=== PATIENT | female | born 1965 | race Caucasian/White ===

== ENCOUNTER 2022-09-25 17:42 | Emergency (ER) | payer MEDICAID, SELFPAY ==
[2022-09-25 17:59] VITALS: BP 117/75; PULSE 82; RESP 18; O2SAT 98; BMI 23.2
--- NOTE | 2022-09-25 18:36 | ED_ITS ---
HPI - General Adult General Chief complaint: Animal Bite Stated complaint: Dog Bite Time Seen by Provider: 09/25/22 17:46 History of Present Illness HPI narrative: Patient is a 49 year white female who is think she is near the end of her tetanus immunization. , was in her eye edge and a piece of food fell on the floor, her dog and another dog scrapped for it and accidentally cut her right anterior flores leg. Patient had good hemostasis is generally healthy, as mentioned uncertain of last tetanus, no meds at home. Related Data Previous Rx's Medication Instructions Recorded cephalexin 500 mg capsule 500 mg PO QID #20 caps 09/25/22 Allergies Allergy/AdvReac Type Severity Reaction Status Date / Time No Known Drug Allergies Allergy Verified 09/25/22 17:59 Review of Systems Status of ROS: Reports: 6 or more systems reviewed and unremarkable except as noted in History and below [facility] Social History Smoking Status: Never smoker Do you use any of these nicotine containing products: None Second hand tobacco smoke exposure: No How often do you have a drink containing alcohol: never AUDIT-C Alcohol total score: 0 Non-prescribed substance use: denies use service: No Exam Narrative: Exam Narrative: Objective: Patient's vital signs unremarkable Right lower extremity shows a 4 cm by 2 cm gaping wound with soft tissue skin loss. There is some fat loss underneath the skin as well. There does not appear to be any deep punctures or other abnormalities Procedure after sterile irrigation and spraying and soaking with sterile solution 1% xylocaine with epinephrine was used for anesthesia patient tolerated this well was able to reapproximate the edges with some skin tension, was also able to reapproximate her tattoo in that area with the sutures and appeared satisfactory to the patient. She will be given an updated Tdap as were unable to locate her prior tetanus shot, will get a Keflex 500 orally common will start Keflex 500 q.i.d. x5 days. She will need suture removal in 7 days at primary care clinic, watch for redness infection and return to ED sooner if there is problems or concerns or infection symptoms. Const: Vital Signs, click to edit/add: Vital Signs - 24 hr 09/25/22 17:59 Pulse Rate [Pulse Oximeter] 82 Respiratory Rate 18 Blood Pressure [Ri ght Upper Arm] 117/75 Pulse Oximetry 98 Oxygen Delivery Me thod Room Air Course Vital Signs Vital signs: Initial Vital Signs Temperature Source Temporal Artery Scan 09/25/22 17:59 Pulse Rate 82 09/25/22 17:59 Pulse Rhythm Regular 09/25/22 17:59 Respiratory Rate 18 09/25/22 17:59 Blood Pressure 117/75 09/25/22 17:59 Blood Pressure Mean 89 09/25/22 17:59 Blood Pressure Position Sitting 09/25/22 17:59 Pulse Oximetry 98 09/25/22 17:59 Oxygen Delivery Method Room Air 09/25/22 17:59 Vital Signs Pulse Rate 82 09/25/22 17:59 Respiratory Rate 18 09/25/22 17:59 Blood Pressure 117/75 09/25/22 17:59 Pulse Oximetry 98 09/25/22 17:59 Oxygen Delivery Method Room Air 09/25/22 17:59 Pulse Rate 82 09/25/22 17:59 Respiratory Rate 18 09/25/22 17:59 Blood Pressure 117/75 09/25/22 17:59 Pulse Oximetry 98 09/25/22 17:59 Oxygen Delivery Method Room Air 09/25/22 17:59 Discharge Plan Discharge Clinical Impression: Bite by animal, Laceration Patient Disposition: Home, Self-Care Condition: Improved Additional Instructions: Suture removal in 7 days, antibiotic for 5 days, keep dry for 24 hours then may soak in soapy water and cover with a bandage as needed. Return if redness concerns or questions. Activity Level: Light activity Discharge Diet: Regular Prescriptions: New cephalexin 500 mg capsule 500 mg PO QID Qty: 20 0RF Stand Alone Forms: [employer] Info Instructions
--- NOTE | 2022-09-25 18:47 | ED.NURSE ---
did call [facility]'s department and aware of the dog bite . emmy story is on her way. this occurred at her resident . owners' name is josue shane.
[2022-09-25] MEDS: TETANUS/DIPHTH/PERTUSSIS 0.5 ML SYRINGE IM (18:50)
[2022-09-25] MEDS: cephALEXin 500 MG CAPSULE PO (18:52)
== END 2022-09-25 19:02 | disposition home or self-care (01) ==
PROVIDERS: Emergency Provider Family Medicine
DX: S81.811A Laceration without foreign body, right lower leg, initial encounter (principal); W54.0XXA Bitten by dog, initial encounter
CPT/HCPCS: 12002; 90471; 90715; 99283; 99284; A9270

== ENCOUNTER 2023-09-27 15:42 | Emergency (ER) | payer BC, SELFPAY ==
[2023-09-27 15:44] VITALS: BP 106/67; PULSE 66; RESP 18; TEMP 37.3; O2SAT 97; BMI 23.5
--- NOTE | 2023-09-27 16:22 | ED_ITS ---
HPI - Chest Pain General Chief Complaint: Chest Pain Stated Complaint: intermittent chest pains Time Seen by Provider: 09/27/23 15:56 History of Present Illness HPI narrative: This 58-year-old female comes in reporting intermittent chest discomfort that began upon awakening this morning. She states that it comes and goes in that there is no trigger that makes it feel better or worse. She does not have any nausea, vomiting, lightheadedness, shortness of breath, or diaphoresis. Her discomfort is not reproduced with activity and she does not have any report of exercise intolerance. She does not have any cardiac risk factors but states that her father did have some kind of heart condition but he was morbidly obese and did not attend to his health. The patient thinks that this pain is likely musculoskeletal as she was working in the garden yesterday. She states that she did not have any symptoms yesterday with those activities. Related Data Allergies Allergy/AdvReac Type Severity Reaction Status Date / Time No Known Drug Allergies Allergy Verified 09/27/23 15:48 Review of Systems Status of ROS Reports: 10 or more systems reviewed and unremarkable except as noted in History and below Narrative Constitutional: No fevers, no weight gain or loss. Eyes: No discharge. No vision changes. HENT: No congestion, no sore throat, no ear pain. Cardiovascular: No palpitations. Respiratory: No shortness of breath, no wheezes, no cough. Gastrointestinal: No abdominal pain, no vomiting, no diarrhea. Genitourinary: No dysuria, no hematuria. Musculoskeletal: Normal range of motion. Skin: No rashes, no pruritis. Neurological: No dizziness, weakness, sensory change, speech change. Endo/Heme/Allergies: No bruising or bleeding. No polydipsia. Pysch: no suicidality, no anxiety, no insomnia. All other systems reviewed and are negative. PFSH PFS Social History Smoking Status: Former smoker Do you use any of these nicotine containing products: None Second hand tobacco smoke exposure: No How often do you have a drink containing alcohol: never AUDIT-C Alcohol total score: 0 Non-prescribed substance use: denies use service: No Exam Narrative Exam Narrative: Constitutional: Well-developed, well-nourished, no acute distress. HEENT: Normocephalic, atraumatic. Neck: Normal range of motion. Nontender. Supple. Heart: Regular. No murmurs. Normal rate. Intact distal pulses. Lungs: Clear to auscultation. No chest discomfort. No wheezes, rhonchi, or rales. Abdomen: Normal bowel sounds. Nontender. No rebound tenderness. Genitalia: Deferred. Back: No midline tenderness. Normal range of motion. Extremities: Normal range of motion. No injury. Skin: Intact. No rash. Warm. No erythema or pallor. Neurologic: No altered sensation. No weakness. Alert and oriented. Psychiatric: No suicidality. No anxiety or depression. No insomnia. Nursing notes and vitals signs are reviewed. Const Vital Signs, click to edit/add: Vital Signs - 24 hr 09/27/23 15:44 Temperature 99.1 F Pulse Rate [Right Pulse Oximeter] 66 Respiratory Rate 18 Blood Pressure [Right Upper Arm] 106/67 Pulse Oximetry 97 Oxygen Delivery Method Room Air Course Vital Signs Vital signs: Initial Vital Signs Temperature 99.1 F 09/27/23 15:44 Temperature Source Temporal Artery Scan 09/27/23 15:44 Pulse Rate 66 09/27/23 15:44 Pulse Rhythm Regular 09/27/23 15:44 Respiratory Rate 18 09/27/23 15:44 Blood Pressure 106/67 09/27/23 15:44 Blood Pressure Mean 80 09/27/23 15:44 Pulse Oximetry 97 09/27/23 15:44 Oxygen Delivery Method Room Air 09/27/23 15:44 Vital Signs Temperature 99.1 F 09/27/23 15:44 Pulse Rate 66 09/27/23 15:44 Respiratory Rate 18 09/27/23 15:44 Blood Pressure 106/67 09/27/23 15:44 Pulse Oximetry 97 09/27/23 15:44 Oxygen Delivery Method Room Air 09/27/23 15:44 Temperature 99.1 F 09/27/23 15:44 Pulse Rate 66 09/27/23 15:44 Respiratory Rate 18 09/27/23 15:44 Blood Pressure 106/67 09/27/23 15:44 Pulse Oximetry 97 09/27/23 15:44 Oxygen Delivery Method Room Air 09/27/23 15:44 MDM - Chest Pain MDM Narrative Medical decision making narrative: This patient comes in reporting some intermittent mild upper anterior chest discomfort that comes and goes starting this morning. She was working out in the garden yesterday but does not report any injury event or significant strenuous activity. Nevertheless she does think that this is more likely musculoskeletal in nature. She does not have any major cardiac risk factors and her signs and symptoms are also reassuring. EKG returns with normal sinus rhythm and no sign of ST or T-wave abnormality. Additionally her troponin returns at 0. Other lab results are pending at the time when the patient feels comfortable and wants to go home. I did discuss other options for further evaluation including echocardiogram and stress testing. This patient does have good exercise tolerance and her chest pain is not likely of cardiac or pulmonary etiology. Lab Data Labs: Lab Results 09/27/23 Range/Units 16:22 POC Troponin I 0.00 L (0.01-0.04) ng/ml ECG Data Attestation: I personally reviewed and interpreted this ECG as follows: Interpretation: Normal sinus rhythm. Rate is 58 beats per minute. There are no ST or T-wave abnormalities. Discharge Plan Discharge Clinical Impression: Anterior chest wall pain Patient Disposition: Home, Self-Care Condition: Stable Additional Instructions: Continue current plans. Activity as tolerated. Follow up with MD or if symptoms are persistent or worsening return to emergency department. He may consider outpatient studies if needed including stress testing and echocardiogram. Follow Up/Referrals: Provider,Not a Local [Primary Care Provider] - Stand Alone Forms: [employer] Info Instructions
[2023-09-27 16:51] LABS: Basophils Absolute Auto 0.03 K/uL (0.00-0.30); Basophils Percent Auto 0.5 % (0.0-3.0); Eosinophils Absolute Auto 0.05 K/uL (0.00-0.50); Eosinophils Percent Auto 0.8 % (0.0-7.0); Hematocrit 38.3 % (33.0-51.0); Hemoglobin* 12.6 gm/dL (12.0-16.0); Lymphocytes Absolute Auto 1.75 K/uL (0.90-2.90); Lymphocytes Percent Auto 28.8 % (20-44); Mean Corpuscular HGB Conc 33 gm/dL (32-36); Mean Corpuscular Hemoglobin 29 pg (26-34); Mean Corpuscular Volume 88 fL (80-100); Monocytes Percent Auto 6.8 % (0.0-11.0); Neutrophils Absolute Auto 3.83 K/uL (1.7-7.0); Neutrophils Percent Auto 63.1 % (42.0-72.0); Platelet Count* 252 K/uL (140-440); RDW Coefficient of Variation % 13.1 % (11.5-15.5); Red Blood Count 4.36 m/uL (4.00-5.20); White Blood Count* 6.07 K/uL (4.50-11.00)
[2023-09-27 17:08] LABS: Chloride* 101 mmol/L (96-114)
[2023-09-27 17:09] LABS: Slide Review Reflex No; Sodium* 136 mmol/L (135-149)
[2023-09-27 17:11] LABS: Anion Gap 5 mEq/L (7-15); Carbon Dioxide* 30 mmol/L (20-32); Creatinine* 0.7 mg/dL (0.5-1.5); Est. Creatinine Clearance* 74.72; Estimated Glomerular Filt Rate 100 ml/min
[2023-09-27 17:12] LABS: Blood Urea Nitrogen* 19 mg/dL (7-30); Calcium* 9.1 mg/dL (8.4-10.6); Glucose* 81 mg/dL (60-115)
[2023-09-27 17:22] VITALS: BP 103/74; PULSE 58; RESP 16; O2SAT 96
== END 2023-09-27 17:26 | disposition home or self-care (01) ==
PROVIDERS: Emergency Provider Emergency Medicine Emergency Medical Services
DX: R07.89 Other chest pain (principal)
CPT/HCPCS: 36415; 80048; 84484; 85025; 93005; 99284

== ENCOUNTER 2024-06-25 10:15 | Emergency (ER) | payer BC, SELFPAY ==
--- OUTSIDE RECORDS SUMMARY | 2024-06-25 10:18 | XMS_ITS | Encounter Summary ---
Author Organization [facility] Address [address] [place] [address]. [place] [address] Care Team Providers Care Time Recorder Name Role Phone Breanna Martin CNP Primary Care Provider [phone] Breanna Martin CNP Unavailable [phone] [facility] Primary Care Pro vider Chris Carver DO Unavailable [phone] Chris Carver DO Unavailable [phone] Breanna Martin CNP Primary Care Provider [phone] Reason for Visit * Reason Comments Medication Refill Encounter Details Date Type Department Care Team (Late st Contact Info) Description 09/12/[address] [phone] Breanna Martin CNP [address] [place] [id number] Medication Refill Social History Tobacco Use Types Packs/Day Years Used Date Smoking Tobacco: Passive Smoke Exposure - Never Smoker Cigarettes 0.3 19 - 04/21/1999 Smokeless Tobacco: Never Alcohol Use Standard Drinks/Week Comments Not Currently 0 (1 standard drink = 0.6 oz pur e alcohol) 0-3 drinks Q1M PHQ-2 Answer Date Recorded PHQ-2 Score 2 07/13/2021 Comments No Sex and Gender Information Value Date Recorded Sex Assigned at Not on file Legal Sex Female 3:21 AM VEHICLE MONITOR TECHNICIAN Gender Identity Female 05/29/2018 6:02 PM VEHICLE MONITOR TECHNICIAN Sexual Orientation Not on file 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 Not on file Not on file documented as of this encounter Miscellaneous Notes * Telephone Encounter - Kenna Bonilla RN - 09/12/2021 1:37 PM CDT Refill per RN protocol Kenna Bonilla RN, BSN [place] Triage documented in this encounter Plan of Treatment Upcoming Encounters Date Type Department Care Team (Late st Contact Info) Description 09/21/2024 3:30 PM CDT Office Visit [address] [phone] Papito Hilliard DO [address] [place] [address] [id number] documented as of this encounter Visit Diagnoses Diagnosis Migraine without status migrainosus, not intractable, unspecified migraine type documented in this encounter Additional Health Concerns Assessment Noted Time PHQ-9 Depression Total Score: 6 12/12/19 16 7:16 AM CDT documented as of this encounter Care Teams Time Recorder Relationship Specialty Start Date End Date Breanna Martin CNP [address] [place] [address] [id number] PCP - General Nurse Practitioner - Family 07/03/21 06/29/22 [facility] [id number] [place] [id number] PCP - General 06/30/22 06/14/24 Breanna Martin CNP [address] [place], [place] [id number] PCP - General Nurse Practitioner - Family 06/15/24 Breanna Martin CNP [address] [place] [address] [phone] Assigned PCP 07/08/21 [place] [address] [address], [place] [id number] Physician senior oracle dba 08/12/23 [place] [address] [place] [address] [id number] Assigned OBGYN Provider 09/11/23 documented as of this encounter
--- OUTSIDE RECORDS SUMMARY | 2024-06-25 10:18 | XMS_ITS | Encounter Summary ---
Author Organization [facility] Address [address] [place] [address]. [place] [address] Care Team Providers Care Physical Aerodynamicist Name Role Phone Andrea Rc Irving PA-C Primary Care Provide r Kadi Hsieh APRN, CNP Primary Care Provider Unavailable [facility] Primary Care Provid er Unavailable [facility] Primary Care Provider Karey Arellano PA-C Unavailable Karey Arellano PA-C Unavailable Breanna Martin CNP Unavailable [phone] Ronaldo Lopez DO Unavailable [phone] Breanna Martin CNP Primary Care Provider [phone] Breanna Martin CNP Unavailable [phone] [facility] Primary Care Pro vider Chris Carver DO Unavailable [phone] Chris Carver DO Unavailable [phone] Breanna Martin CNP Primary Care Provider [phone] Encounter Details Date Type Department Care Team (Late st Contact Info) Description 11/03/[address] [phone] Michael Foster MD [address] [place] [phone] [id number] [facility] [place] Social History Tobacco Use Types Packs/Day Years Used Date Smoking Tobacco: Former Cigarettes 0.3 19 0 04/21/1983 - 04/21/1999 Passive Smoke Exposure: Yes Smokeless Tobacco: Never Alcohol Use Standard Drinks/Week Comments Not Currently 0 (1 standard drink = 0.6 oz pur e alcohol) 0-3 drinks Q1M Comments No Sex and Gender Information Value Date Recorded Sex Assigned at Not on file Legal Sex Female 3:21 AM GINNER Gender Identity Female 05/29/2018 6:02 PM GINNER Sexual Orientation Not on file 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 Not on file Not on file documented as of this encounter Plan of Treatment Upcoming Encounters Date Type Department Care Team (Late Contact Info) Description 09/21/2024 3:30 PM CDT Office Visit [address] [phone] Papito Hilliard DO [address] [place] [address] [phone] documented as of this encounter Visit Diagnoses Not on filedocumented in this encounter Care Teams Physical Aerodynamicist Relationship Specialty Start Date End Date Rc Mendez PA-C [address] [address] PCP - General Physician Telegrapher Agent 06/08/09 10/17/13 Kadi Hsieh APRN CNP [address] [address] PCP - General Nurse Practitioner 10/18/13 11/19/16 [facility] PCP - General 11/20/16 12/18/[address] [address] PCP - General 12/19/16 07/02/21 Karey Arellano PA-C [address] [place] [address] PCP - Assigned PCP 10/05/17 06/23/18 Breanna Martin, TAYLOR [address] [place] [address] PCP - General Nurse Practitioner - Family 07/03/21 06/29/[address] [address] PCP - General 06/30/22 06/14/24 Breanna Matrin, TAYLOR [address] [place] [address] PCP - General Nurse Practitioner - Family 06/15/24 Karey Arellano PA-C [address] [place] [address] Assigned PCP 10/05/17 09/13/20 Breanna Martin, TAYLOR [address] [place] [address] Assigned PCP 09/14/20 05/26/21 [place] [address] [place] [address] Assigned PCP 05/27/21 07/07/21 Breanna Martin, TAYLOR [address] [place] [address] Assigned PCP 07/08/21 [place] [id number] [place] [address] Physician solar installer technician 08/12/23 Chris Carver [place] [id number] [place] [address] Assigned OBGYN Provider 09/11/23 documented as of this encounter
--- OUTSIDE RECORDS SUMMARY | 2024-06-25 10:18 | XMS_ITS | Encounter Summary ---
Author Organization [facility] Address [address] [place] [address]. [place] [address] Care Team Providers Care Cook Helper Vegetable Name Role Phone Breanna Martin CNP Unavailable [phone] [facility] Primary Care Pro vider Chris Carver DO Unavailable [phone] Chris Carver DO Unavailable [phone] Breanna Martin CNP Primary Care Provider [phone] Encounter Details Date Type Department Care Team (Late st Contact Info) Description 08/20/2023 MyC Medical Advice [facility] [address] [place] [address] Anna Christina Social History Tobacco Use Types Packs/Day Years Used Date Smoking Tobacco: Former Cigarettes 0.3 19 0 04/21/1983 - 04/21/1999 Passive Smoke Exposure: Yes Smokeless Tobacco: Never Alcohol Use Standard Drinks/Week Comments Not Currently 0 (1 standard drink = 0.6 oz pur e alcohol) 0-3 drinks Q1M Social Connection and Isolation Panel [NHANES] A nswer Date Recorded Frequency of Communication with Friends and Fami ly Not on file 08/07/2023 How often do you get together with friends or re latives? Twice a week 08/07/2023 Attends Holiness Services Not on file 08/06 Active Member of Clubs or Organizations Not on f ile 08/07/2023 Attends Club or Organization Meetings Not on yumiko e 08/07/2023 Marital Status Not on file 08/07/2023 PHQ-2 Answer Date Recorded PHQ-2 Score 0 08/14/2023 [facility] - Occupational Stress Questionnaire Answer Date Recorded Do you feel stress - tense, restless, nervous, or anxious, or unable to sleep at night because your mind is troubled all the time - these days? Only a little 08/07/2023 Exercise Vital Sign Answer Date Recorde d On average, how many days pe r week do you engage in moderate to strenuous exercise (like a brisk walk)? 1 day 08/07/2023 On average, how many minutes do you engage in exercise at this level? 20 min 08/07/2023 Adolescent Education Answer Date Record ed Getting School Help Needed Not on file 02/02 Food Insecurity Answer Date Recorded Within the past 12 months, d id you worry that your food would run out before you got money to buy more? Patient declined 0 08/07/2023 Within the past 12 months, d id the food you bought just not last and you didn t have money to get more? Patient declined 08/07/2023 Housing Stability Answer Date Recorded Do you have housing? (Terra g is defined as stable permanent housing and does not include staying ouside in a car, in a tent, in an abandoned building, in an overnight usp, or couch-surfing.) Patient declined 08/07/2023 Are you worried about losing your housing? Patiryder nt declined 08/07/2023 Financial Resource Strain Answer Date R ecorded Within the past 12 months, h ave you or your family members you live with been unable to get utilities (heat, electricity) when it was really needed? Patient declined 024 Transportation Needs Answer Date Record ed Within the past 12 months, h as lack of transportation kept you from medical appointments, getting your medicines, non-medical meetings or appointments, work, or from getting things that you need? Patient declined 08/07/2023 Interpersonal Safety Answer Date Record ed Do you feel physically and e motionally safe where you currently live? Yes 08/08/2023 Within the past 12 months, h ave you been hit, slapped, kicked or otherwise physically hurt by someone? No 08/08/2023 Within the past 12 months, h ave you been humiliated or emotionally abused in other ways by your partner or ex-partner? 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 Not on file Not on file documented as of this encounter Plan of Treatment Upcoming Encounters Date Type Department Care Team (Late st Contact Info) Description 09/21/2024 3:30 PM CDT Office Visit [address] [phone] Papito Hilliard DO [address] [place] [address] [phone] documented as of this encounter Visit Diagnoses Not on filedocumented in this encounter Additional Health Concerns Assessment Noted Time PHQ-9 Depression Total Score: 0 08/07/19 24 12:02 PM CDT documented as of this encounter Care Teams Cook Helper Vegetable Relationship Specialty Start Date End Date [facility], [address] [address] PCP - General 06/30/22 06/14/24 Breanna Martin CNP [address] [place] [address] [id number] PCP - General Nurse Practitioner - Family 06/15/24 Breanna Martin CNP [address] [place] [address] Assigned PCP 07/08/21 [place] [address] [place] [address] Physician toppiece cutter 08/12/23 [place] [address] [place] [address] Assigned OBGYN Provider 09/11/23 documented as of this encounter
--- OUTSIDE RECORDS SUMMARY | 2024-06-25 10:18 | XMS_ITS | Encounter Summary ---
Author Organization [facility] Address [address] [place] [address]. [place] [address] Care Team Providers Care Canvas Cutter Hand Name Role Phone Andrea Rc Irving PA-C Primary Care Provide r Kadi Hsieh APRN, CNP Primary Care Provider Unavailable [facility] Primary Care Provid er Unavailable [facility] Primary Care Provider Karey Arellano PA-C Unavailable Karey Arellano PA-C Unavailable Breanna Martin CNP Unavailable [phone] Ronaldo Lopez DO Unavailable [phone] Breanna Martin CNP Primary Care Provider [phone] Breanna Martin CNP Unavailable [phone] [facility] Primary Care Pro vider Chris Carver DO Unavailable [phone] Chris Carver DO Unavailable [phone] Breanna Martin CNP Primary Care Provider [phone] Encounter Details Date Type Department Care Team (Late st Contact Info) Description 06/25/2011 My[facility] Medical Advice [address] [phone] Marck Jade Social History Tobacco Use Types Packs/Day Years Used Date Smoking Tobacco: Former Cigarettes Q uit: 04/21/1999 Alcohol Use Standard Drinks/Week Comments No 0 (1 standard drink = 0.6 oz pur e alcohol) Comments No Sex and Gender Information Value Date Recorded Sex Assigned at Not on file Legal Sex Female 3:21 AM MEDICAL TECH Gender Identity Female 05/29/2018 6:02 PM MEDICAL TECH Sexual Orientation Not on file 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 Not on file Not on file documented as of this encounter Plan of Treatment Upcoming Encounters Date Type Department Care Team (Late Contact Info) Description 09/21/2024 3:30 PM CDT Office Visit [address] [phone] Papito Hilliard DO [address] [place] [address] [id number] documented as of this encounter Visit Diagnoses Not on filedocumented in this encounter Care Teams Canvas Cutter Hand Relationship Specialty Start Date End Date Rc Mendez PA-C [address] [address] PCP - General Physician Circus Hand 06/08/09 10/17/13 Kadi Hsieh APRN CHURCH SUPERVISOR [address] [address] PCP - General Nurse Practitioner 10/18/13 11/19/16 [facility] PCP - General 11/20/16 12/18/[address] [address] PCP - General 12/19/16 07/02/21 Karey Arellano PA-C [address] [place] [address] PCP - Assigned PCP 10/05/17 06/23/18 Breanna Martin, CHURCH SUPERVISOR [address] [place] [address] PCP - General Nurse Practitioner - Family 07/03/21 06/29/22 [facility] [id number] [place] [address] PCP - General 06/30/22 06/14/24 Breanna Martin, CHURCH SUPERVISOR [address] [place] [address] PCP - General Nurse Practitioner - Family 06/15/24 Karey Arellano PA-C [address] [place] [address] Assigned PCP 10/05/17 09/13/20 Breanna Martin, CHURCH SUPERVISOR [address] [place] [address] Assigned PCP 09/14/20 05/26/21 [place] [address] [place] [address] Assigned PCP 05/27/21 07/07/21 Breanna Martin, CHURCH SUPERVISOR [address] [place] [address] Assigned PCP 07/08/21 [place] [address] [place] [address] Physician manager hi 08/12/23 [place] [address] [place] [address] Assigned OBGYN Provider 09/11/23 documented as of this encounter
--- OUTSIDE RECORDS SUMMARY | 2024-06-25 10:18 | XMS_ITS | Encounter Summary ---
Author Organization [facility] Address [address] [place] [address] Care Team Providers Care Slide Developer Name Role Phone Shilpi Morales PA-C Primary Care Provider [phone] Encounter Details Date Type Department Care Team (Late st Contact Info) Description 06/07/2024 1:30 PM MANUFACTURING CONTROLLER Lab Visit [facility] [id number] [place] [address], [address] [place] [address] Encounter for monitoring testosterone replacement therapy Social History Tobacco Use Types Packs/Day Years Used Date Smoking Tobacco: Former Cigarettes 0.3 15 0 04/21/1982 - 04/21/1997 Smokeless Tobacco: Never Comments:Smoked for 15 years from , stopped and then smoked again from 0516-4777 briefly. Has not smoked cigarettes since. Alcohol Use Standard Drinks/Week Comments Never 0.8 (1 standard drink = 0.6 oz p ure alcohol) 1x/month PHQ-2 Answer Date Recorded PHQ-2 Score 0 07/15/2022 Financial Resource Strain Answer Date R ecorded Is it hard for you to pay fo r the very basics like food, housing, medical care or heating? No 07/15/2022 Food Insecurity Answer Date Recorded Does your food run out before you have the money to buy more? No 07/15/2022 Transportation Needs Answer Date Record ed Does a lack of transportatio n keep you from your medical appointments or from getting your medications? 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 file Not on file Not on yumiko e documented as of this encounter Plan of Treatment Upcoming Encounters Date Type Department Care Team (Late st Contact Info) Description 07/26/2024 9:30 AM CDT Appointment [facility] [phone] [place] [address], [address] [place] [address] documented as of this encounter Procedures Procedure Name Priority Date/Time Associated Diagnosis Comments TESTOSTERONE FREE AND TOTAL, FEMALE OR CHILDREN Routine 06/07/2024 1:30 PM MANUFACTURING CONTROLLER Encounter for monitoring testosterone replacement therapy documented in this encounter Results * Testosterone Free,Total,SHBG,Female,Children,Individuals on Testosterone Suppressing Hormone Therapy (06/07/2024 1:30 PM MANUFACTURING CONTROLLER) Sex Hormone Binding Globulin 112 17 - 125 nmol/L 06/10/2024 5:23 AM MANUFACTURING CONTROLLER [employer] Comment: REFERENCE INTERVAL: Sex Hormone Binding Globulin Access complete set of age- and/or gender-specific reference intervals for this test in the [facility] Test Directory ([employer]). Testosterone Female or Children 9 9 - 55 ng/dL 06/10/2024 5:23 AM MANUFACTURING CONTROLLER [employer] Comment: REFERENCE INTERVAL: Testosterone by Test Borer Helper Females Premenopausal 9-55 ng/dL Postmenopausal 5-32 ng/dL INTERPRETIVE INFORMATION: Testosterone by Test Borer Helper Free or bioavailable testosterone measurements may provide supportive information. For individuals on testosterone-suppressing hormone therapies (e.g., antiandrogens or estrogens), refer to cisgender female reference intervals. For a complete set of all established reference intervals, refer to ltd[employer]/Tests/Pub/[id number]. This test was developed and its performance characteristics determined by [employer]. It has not been cleared or approved by the [place] Food and Drug Administration. This test was performed in a CLIA certified laboratory and is intended for clinical purposes. Testosterone Free Female and Child 0.6 0.6 - 3.8 pg/mL 06/10/2024 5:23 AM MANUFACTURING CONTROLLER [employer] Comment: INTERPRETIVE INFORMATION: Testosterone, Free by Test Borer Helper Free testosterone concentration is calculated using total testosterone (measured by mass spectrometry) and the binding constant of testosterone and sex hormone-binding globulin (SHBG). For individuals on testosterone-suppressing hormone therapies (e.g., antiandrogens or estrogens), refer to cisgender female reference intervals. For a complete set of all established reference intervals, refer to [employer]/Tests/Pub/[id number]. This test was developed and its performance characteristics determined by [employer]. It has not been cleared or approved by the [place] Food and Drug Administration. This test was performed in a CLIA certified laboratory and is intended for clinical purposes. Performed By: [employer] [address] [place] [address] Production Line: Uche Pozo MD, PhD CLIA Number: [id number] Blood Venipuncture / Unknown 06/07/2024 1:30 PM MANUFACTURING CONTROLLER 06/07/2024 1:32 PM MANUFACTURING CONTROLLER us Marcella Moore APRN, CNP LAB_1 Final Result Performing Organization Address City/State/[facility] Co de Phone Number [employer] [address] [place], [place] [address] [place] [address] documented in this encounter Visit Diagnoses Diagnosis Encounter for monitoring testosterone replacement therapy documented in this encounter Care Teams Slide Developer Relationship Specialty Start Date End Date Shilpi Morales PA-C [address] [facility] [place] [address] PCP - General Physician Acid Correction Hand 03/05/22 documented as of this encounter
--- OUTSIDE RECORDS SUMMARY | 2024-06-25 10:18 | XMS_ITS | Encounter Summary ---
Author Organization [facility] Address [address] [place] [address] Care Team Providers Care Band Saw Runner Name Role Phone Shilpi Morales PA-C Primary Care Provider [phone] Reason for Visit * Reason Comments LAB RESULTS Encounter Details Date Type Department Care Team (Late st Contact Info) Description 06/10/2024 Telephone [facility]-ANA[employer]ST [facility] [address] [facility], [facility] [address] [place] [address] Oscar, Marcella Tilley, ANSWERER, SYNTHETIC DEPARTMENT SUPERVISOR [address] [facility] [address] [place] [address] LAB RESULTS Social History Tobacco Use Types Packs/Day Years Used Date Smoking Tobacco: Former Cigarettes 0.3 15 0 04/21/1982 - 04/21/1997 Smokeless Tobacco: Never Comments:Smoked for 15 years from -, stopped and then smoked again from 3807-2570 briefly. Has not smoked cigarettes since. 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 Patient verbalizes understanding and reports last time pharmacy needed a signature. CHISE BUSINESS CONSULTANT * Marcella Moore APRN, TAYLOR - 06/10/2024 12:31 PM CST Unfortunately this can happen with compounded medications as we are relying on pharmacist to mix them, hence the need for monitoring levels. I would recommend we increase the testosterone dose in theprescription and check again in 6 weeks. CHISE BUSINESS CONSULTANT * Noelle Alejandre RN - 06/10/2024 9:20 AM CST Pt calling regarding her testosterone lab results. Pt concerned as testosterone significantly decreased. 7 mos ago level was 44 and now down to 9. Pt is using the cream as directed and rubs the testosterone into her thighs well before putting on her sweat pants. Pt unsure why her levels have dropped so significantly. Routing to provider to review results. Pt expecting callback with message from provider CHISE BUSINESS CONSULTANT documented in this encounter Plan of Treatment Upcoming Encounters Date Type Department Care Team (Late st Contact Info) Description 07/26/2024 9:30 AM CDT Appointment [facility], [facility] [address] [place] [address] Scheduled Orders Name Type Priority Associated Diagnoses Orde r Schedule Testosterone Free,Total,SHBG,Female,Chi ldren,Individuals on Testosterone Suppressing Hormone Therapy Lab Routine Post-menopause on HRT (hormone replacement therapy) Expected: 07/08/2024 (Approximate), Expires: 10/06/2024 documented as of this encounter Visit Diagnoses Diagnosis Post-menopause on HRT (hormone replacement therapy)- Primary Need for prophylactic hormone replacement therapy (postmenopausal) documented in this encounter Care Teams Band Saw Runner Relationship Specialty Start Date End Date Shilpi Morales, GABRIELLEC [address] [place] [address] PCP - General Physician Moose Hunter 03/05/22 documented as of this encounter
--- OUTSIDE RECORDS SUMMARY | 2024-06-25 10:18 | XMS_ITS | Encounter Summary ---
Author Organization [facility] Address [address] [place] [address]. [place] [address] Care Team Providers Care Optimization Specialist Name Role Phone Breanna Martin CNP Unavailable [phone] [facility] Primary Care Pro vider Chris Carver DO Unavailable [phone] Chris Carver DO Unavailable [phone] Breanna Martin CNP Primary Care Provider [phone] Encounter Details Date Type Department Care Team (Late st Contact Info) Description 2023 MyC Medical Advice [facility] [address] [place] [address] Anna Christina Social History Tobacco [...] re latives? Twice a week 08/07/2023 Attends [employer] Not on file 08/06 Active Member of Clubs or Organizations Not on f ile 08/07/2023 Attends Club or Organization Meetings Not on yumiko e 08/07/2023 Marital Status Not on file 08/07/2023 PHQ-2 Answer Date Recorded PHQ-2 Score 0 08/14/2023 [facility] - Occupational Stress [...] in an abandoned building, in an overnight jail, or couch-surfing.) Patient declined 08/07/2023 Are you [...] on file Legal Sex Female 3:21 AM BUSINESS RELATIONSHIP MANAGER Gender Identity Female 05/29/2018 6:02 PM BUSINESS RELATIONSHIP MANAGER Sexual Orientation Not on file 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 on file 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 Not on file Not on file documented as of this encounter Plan of Treatment Upcoming Encounters Date Type Department Care Team (Late st Contact Info) Description 09/21/2024 3:30 PM CDT Office Visit [address] [phone] Papito Hilliard DO [address] [place] [address] documented as of this encounter Visit Diagnoses Not on filedocumented in this encounter Additional Health Concerns Assessment Noted Time PHQ-9 Depression Total Score: 0 08/07/19 24 12:02 PM CDT documented as of this encounter Care Teams Optimization Specialist Relationship Specialty Start Date End Date [facility], [address] [address] PCP - General 06/30/22 06/14/24 Breanna Martin CNP [address] [place] [address]502 PCP - General Nurse Practitioner - Family 06/15/24 Breanna Martin CNP [address] [place] [address] Assigned PCP 07/08/21 [place] [address] [place] [address] Physician associate team physician 08/12/23 [place] [address] [place] [address] Assigned OBGYN Provider 09/11/23 documented as of this encounter
--- OUTSIDE RECORDS SUMMARY | 2024-06-25 10:18 | XMS_ITS | Clinical Summary ---
Author Organization [facility] Address [address] [place] [address] Care Team Providers Care [employer] Scout Name Role Phone Yesi Barnard Primary Care Provider Un available Allergies No known active allergies Medications ibuprofen (ADVIL; MOTRIN) 600 mg tablet Take 1 tablet by mouth 4 times daily if needed for Pain. Maximum of 3200 mg in 24 hours. 25 tablet 0 08/18/19 12 Active amitriptyline (ELAVIL) 25 mg tablet Take 25 mg by mouth at bedtime. Active propranolol (INDERAL LA) 60 mg Cs24 Sustained-Releas e capsule Take 60 mg by mouth once daily. Active HYDROcodone-acet aminophen, 5-325 mg, (NORCO) per tablet Take 1-2 tablets by mouth every 4 hours if needed for Pain. Max acetaminophen dose: 4000mg in 24 hrs. 15 tablet 0 02/09/20 13 Active polyethylene glycol (MIRALAX; GLYCOLAX) 17 g powder for solutionIndicati ons:Constipation , unspecified constipation type Take 17 g by mouth 2 times daily if needed for Constipation. 1 box 0 07/21/19 16 Active cyclobenzaprine (FLEXERIL) 10 mg tabletIndication s:Abdominal wall pain Take 0.5-1 tablets by mouth 3 times daily. 20 tablet 0 07/21/19 16 Active Social History Tobacco Use Types Packs/Day Years Used Date Smoking Tobacco: Every Day Cigarettes Tobacco Cessation:Ready to Q uit: No; Counseling Given: No Alcohol Use Standard Drinks/Week Comments Not Asked 0 (1 standard drink = 0.6 oz pur e alcohol) Comments No Sex and Gender Information Value Date Recorded Sex Assigned at Not on file Legal Sex Female 7:01 AM EPIC DIRECTOR Gender Identity Not on file Sexual Orientation Not on file Obstetrics History Last Filed Vital Signs Vital Sign Reading Time Taken Comments Blood Pressure 133/76 07/21/2015 6:00 PM CDT Pulse 59 07/21/2015 6:00 PM CDT Temperature 36.9 C (98.4 F) 07/21/2015 3:39 PM CDT Respiratory Rate 16 07/21/2015 6:00 PM CDT Oxygen Saturation 100% 07/21/2015 6:00 PM CDT Inhaled Oxygen Concentration - - Weight 59 kg (130 lb) 02/07/2013 10:07 PM CDT Height 165.1 cm (5' 5) 02/07/2013 10:07 PM CDT Body Mass Index 21.63 02/07/2013 10:07 PM CDT Plan of Treatment Not on file Insurance [facility] Care Teams [employer] Scout Relationship Specialty Start Date End Date Yesi Barnard PA PCP - General Physician Slabber 07/21/15
--- OUTSIDE RECORDS SUMMARY | 2024-06-25 10:18 | XMS_ITS | Clinical Summary ---
[facility] Address [address] [place] [address] Care Team Providers Care Mail Order Sorter Name Role Phone Shilpi Morales PA-C Primary Care Provider + [phone] Source Comments You are receiving this document as you are listed as the primary care provider,follow-up provider, or the patient has been referred to you for consultation.This is in compliance with the Medicare and[facility] EHR Incentive Program,which states Providers who transition their patient to another setting of careor provider of care or refers their patient to another provider of care shouldprovide summary care record for each transition of care or referral. [facility] No known active allergies Medications Multiple Vitamins-Mineral s (MULTIVITAMIN OR) Take 1 tablet by mouth daily (every 24 hours). 100 13 007 Active acetaminophen (AKA TYLENOL EXTRA STRENGTH) 500 MG tablet Take 1-2 Tablets (500-1,000 mg) by mouth every 4 hours as needed (Take 1-2 tablets by mouth every 4 hours as needed.). 010 Active calcium polycarbophil (AKA FIBERCON) 625 MG tablet Take 1 tablet by mouth daily (every 24 hours). 30 tablet 12 012 Active polyethylene glycol 3350 (AKA GLYCOLAX) powder Take 17 g by mouth daily (every 24 hours). 255 g 12 012 Active lidocaine (ASPERCREAM) 4 % patch Apply 1 Patch to skin every 24 hours. 022 Active Multiple Vitamins-Mineral s (ZINC OR)Indications:s upplement Take 1 Tablet by mouth daily. Indications: supplement Active Cholecalciferol (VITAMIN D3 OR)Indications:s upplement Take 5,000 Int'l Units/day by mouth daily. Indications: supplement Active [place]-3 Fatty Acids (FISH OIL) 600 MG CAPS Take 2 Capsules (1,200 mg) by mouth daily. Two 600mg caps/daily Active cyclobenzaprine (FLEXERIL) 10 MG tabletIndication s:Chronic bilateral low back pain without sciatica,Spasm of muscle 1 tab po qhs prn pain/spasm. 30 Tablet 1 023 Active LORazepam (ATIVAN) 0.5 MG tablet TAKE 1 TABLET BY MOUTH THREE TIMES DAILY NEEDED FOR PANIC ATTACKS. 024 Active testosterone (ANDROGEL) 12.5 MG/ACT (1%) gel dispenser Apply 1 Pump. (12.5 mg) to skin two times a week. 88 g 024 Active compounded prescription Compound Testosterone 4mg/gram. Apply 1 gram daily to thin skinned areas and rotate sites daily. 30 g 1 025 Active compounded prescription Compound Testosterone 2mg/gram. Apply 1 gram daily to thin skinned areas and rotate sites daily. 30 g 5 024 2024 Discontinued Active Problems Problem Noted Date Diagnosed Date Migraine without aura and wi thout status migrainosus, not intractable 03/05/2022 Constipation 03/05/2022 Chronic neck pain 12/08/2017 Acquired postural kyphosis 09/03/2017 Anxiety 05/10/2009 Lumbago 09/25/2002 Overview (12/11/2016): Pain Low Back Resolved Problems Problem Noted Date Diagnosed Date Resolved Date Obesity 07/16/2006 03/05/2022 Encounters Date Type Department Care Team Description 06/10/2024 Telephone [facility]IMAG[facility] TECHNICIAN [address], [address] [place] [address] Marcella Moore, SLUBBER FRAME CHANGER, SOFTWARE CONFIGURATION ENGINEER LAB RESULTS 06/07/2024 1:30 PM SEARCH MANAGER Lab Visit [facility] [address], [address] [place] [address] Encounter for monitoring testosterone replacement therapy from Last 3 Months Immunizations Immunization Administration Dates Next Due HepB Adolescent/High Risk Infant 09/18/2000,03/22,03/06/2000 Tdap 09/07/2018,05/19/2006 Family History Medical History Relation Name Comments Diabetes Father Father Diabetes, Type II Father Father Hyperlipidemia Father Father Hypertension Father Father Myocardial Infarction Father Father Obesity Father Father Stroke Father Father Cancer, Brain Mother Migraines Mother Heart Disease Maternal Grandmother Heart Failure Maternal Grandmother No Known Problems Son 1 Gabriel No Known Problems Son 2 Roosevelt Cancer, Breast Negative Family History Cancer, Colon Negative Family History Cancer, Ovary Negative Family History Relation Name Status Comments Father Father Mother Maternal Grandmother Son 1 Gabriel Alive Son 2 Roosevelt Alive Social History Tobacco Use Types Packs/Day Years Used Date Smoking Tobacco: Former Cigarettes 0.3 15 0 04/21/1982 - 04/21/1997 Smokeless Tobacco: Never Tobacco Cessation:Counseling Given: Not Answered Comments:Smoked for 15 years from -, stopped and then smoked again from [id number] briefly. Has not smoked cigarettes since. 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 Not on file Not on yumiko e Last Filed Vital Signs Vital Sign Reading Time Taken Comments Blood Pressure 107/66 11/21/2023 10:32 AM CDT Pulse 61 11/21/2023 10:32 AM CDT Temperature 36.8 C (98.3 F) 10/04/2022 1:58 PM CDT Respiratory Rate 14 10/04/2022 1:58 PM CDT Oxygen Saturation 98% 10/04/2022 1:58 PM CDT Inhaled Oxygen Concentration - - Weight 63.5 kg (140 lb) 11/21/2023 10:32 AM CDT Height 162.6 cm (5' 4) 11/21/2023 10:32 AM CDT Body Mass Index 24.03 11/21/2023 10:32 AM CDT Plan of Treatment Upcoming Encounters Date Type Department Care Team (Late st Contact Info) Description 07/26/2024 9:30 AM CDT Appointment [facility]-[address], [address] [place] [address] Health Maintenance Due Date Last Done Comments Pneumococcal 50+ Yrs (1 of 1 - PCV) 2014 Zoster/Shingles (1 of 2) 2014 Adult Preventive Visit 07/16/2023 07/15/2022 Mammogram 10/31/2023 10/30/2022, 10/19, 10/26/2021, Additional history exists COVID-19 Vaccine ( season) 2023 Influenza (#1) 2023 Cervical Cancer Screening 10/03/20242019 (Completed), 02/11/2007 Cholesterol 01/28/2027 01/28/2022 (Completed) Colonoscopy 04/24/2027 04/24/2022, 09/19 (Completed) DTaP/Tdap/Td (4 - Tdap) 09/25/2032 09/26/19, 09/07/2018, 05/19/2006 HepB Completed 09/18/2000, 03/22, 03/06/2000 HIV Screening (Preventive Services) Completed 07/15/2022 Hep C Screening (Preventive Services) Completed 07/15/2022, 07/15/2022 HepA Aged Out No longer eligi ble based on patient's age to complete this topic Hib Aged Out No longer eligi ble based on patient's age to complete this topic IPV (Polio) Aged Out No longer eligi ble based on patient's age to complete this topic MCV4 Aged Out No longer eligi ble based on patient's age to complete this topic Meningococcal B Aged Out No longer el igible based on patient's age to complete this topic Procedures Procedure Name Priority Date/Time Associated Diagnosis Comments TESTOSTERONE FREE AND TOTAL, FEMALE OR CHILDREN Routine 06/07/2024 1:30 PM SEARCH MANAGER Encounter for monitoring testosterone replacement therapy HIV 1/2 AG/AB 4TH GEN Routine 07/15/2022 12:26 PM CDT Screening for HIV (human immunodeficiency virus) HEPATITIS C ANTIBODY, WITH REFLEX Routine 07/15/2022 12:26 PM CDT Need for hepatitis C screening test ENDOSCOPY, COLON, SCREENING/DIAGNOSTIC Routine 04/24/2022 8:19 AM SEARCH MANAGER Positive FIT (fecal immunochemical test) ANATOMICAL PATH LIQUID BASED Routine 02/11/2007 11:51 AM CDT from Last 3 Months or Most Recently Relevant to Health Maintenance Results * Testosterone Free,Total,SHBG,Female,Children,Individuals on Testosterone Suppressing Hormone Therapy (06/07/2024 1:30 PM SEARCH MANAGER) Sex Hormone Binding Globulin 112 17 - 125 nmol/L 06/10/2024 5:23 AM SEARCH MANAGER [employer] Comment: REFERENCE INTERVAL: Sex Hormone Binding Globulin Access complete set of age- and/or gender-specific reference intervals for this test in the [facility] Test Directory ([facility]). Testosterone Female or Children 9 9 - 55 ng/dL 06/10/2024 5:23 AM SEARCH MANAGER [employer] Comment: REFERENCE INTERVAL: Testosterone by Enterprise Cloud Architect Females Premenopausal 9-55 ng/dL Postmenopausal 5-32 ng/dL INTERPRETIVE INFORMATION: Testosterone by Enterprise Cloud Architect Free or bioavailable testosterone measurements may provide supportive information. For individuals on testosterone-suppressing hormone therapies (e.g., antiandrogens or estrogens), refer to cisgender female reference intervals. For a complete set of all established reference intervals, refer to ltd.Amicrobe/Tests/Pub/[id number]. This test was developed and its performance characteristics determined by [facility]. It has not been cleared or approved by the [place] Food and Drug Administration. This test was performed in a CLIA certified laboratory and is intended for clinical purposes. Testosterone Free Female and Child 0.6 0.6 - 3.8 pg/mL 06/10/2024 5:23 AM SEARCH MANAGER [employer] Comment: INTERPRETIVE INFORMATION: Testosterone, Free by Enterprise Cloud Architect Free testosterone concentration is calculated using total testosterone (measured by mass spectrometry) and the binding constant of testosterone and sex hormone-binding globulin (SHBG). For individuals on testosterone-suppressing hormone therapies (e.g., antiandrogens or estrogens), refer to cisgender female reference intervals. For a complete set of all established reference intervals, refer to [facility] [employer] [facility].Am[facility]/Tests/Pub/[id number]. This test was developed and its performance characteristics determined by [facility]. It has not been cleared or approved by the [place] Food and Drug Administration. This test was performed in a CLIA certified laboratory and is intended for clinical purposes. Performed By: [facility] [address] [place] [address] Cell Technician: Uche Pozo MD, PhD CLIA Number: [id number] Blood Venipuncture / Unknown 06/07/2024 1:30 PM SEARCH MANAGER 06/07/2024 1:32 PM SEARCH MANAGER Marcella Moore APRN, SOFTWARE CONFIGURATION ENGINEER LAB_1 Final Result Performing Organization Address [facility]/State/[facility] Co de Phone Number [employer] [address] [place], [place] [id number] [place] [address] * HIV 1/2 Ag/Ab 4th Generation (07/15/2022 12:26 PM CDT) HIV 1/2 Antigen/Antib julia (4th generation) Negative (Non Reactive) Negative (Non Reactive) 07/15/2022 7:20 PM CDT [facility] Comment:HIV-1 p24 Antigen an d HIV-1/HIV-2 Antibody not detected Blood Venipuncture / Unknown 07/15/2022 12:26 PM CDT 07/15/2022 12:26 PM CDT Shilpi MARCIAL-C LAB_1 Final Result Performing Organization Address [facility] de Phone Number [facility] [address] * (ABNORMAL) Hepatitis C Antibody, with Reflex (07/15/2022 12:26 PM CDT) Hepatitis C Antibody Positive (Reactive)( A) Negative (Non Reactive) 07/15/2022 7:20 PM CDT [facility] Comment:Presumptive evidence of antibodies to HCV. Per the CDC's recommended guidelines, HCV Quantitative RNA testing has been ordered. Blood Venipuncture / Unknown 07/15/2022 12:26 PM CDT 07/15/2022 12:26 PM CDT Shilpi MARCIAL-C LAB_1 Final Result Performing Organization Address [facility] de Phone Number [facility] [address] * Endoscopy, Colon, Screening/Diagnostic (04/24/2022 8:19 AM SEARCH MANAGER) Anatomical Region Laterality Modality Other 04/24/2022 8:19 AM SEARCH MANAGER Narrative 04/24/2022 8:19 AM SEARCH MANAGER Patient Name: Flor Alonso Procedure Date: 04/24/2022 8:19 AM Date of : 1965 Admit Type: Outpatient Age: 56 Note Status: Finalized Attending MD: Chance Almanzar MD Procedure: Colonoscopy Indications: This is the patient's first colonoscopy, Positive fecal immunochemical test Providers: Chance Almanzar MD, Mely Abrams Referring MD: Shilpi Morales Medicines: Midazolam 6 mg IV, Fentanyl 200 micrograms IV, CO2 Complications: No immediate complications. Estimated blood loss: Minimal. Procedure: After I obtained informed consent, the scope was passed under direct vision. Throughout the procedure, the patient's blood pressure, pulse, and oxygen saturations were monitored continuously. The [id number] was introduced through the anus and advanced to 3 cm into the ileum. The colonoscopy was performed without difficulty. The patient tolerated the procedure well. The quality of the bowel preparation was good. The terminal ileum, ileocecal valve, appendiceal orifice, and rectum were photographed. Findings: Skin tags were found on perianal exam. Normal mucosa was found in the entire colon. An 8 mm polyp was found in the distal ascending colon. The polyp was sessile. The polyp was removed with a cold snare. Resection and retrieval were complete. Estimated blood loss was minimal. Verification of patient identification for the specimen was done by the physician and nurse using the patient's name and date. The terminal ileum appeared normal. Non-bleeding internal hemorrhoids were found during retroflexion. The hemorrhoids were small. The exam was otherwise without abnormality on direct and retroflexion views. Moderate Sedation: Moderate (conscious) sedation was administered by the endoscopy nurse and supervised by the endoscopist. The following parameters were monitored: oxygen saturation, heart rate, blood pressure, and response to care. Total physician intraservice time was 11 minutes. This time is the duration from the initial medication administration until the enterprise project manager assists with initial maneuvers (biopsy / polypectomy / etc.), or if no maneuvers are performed, until the endoscopist leaves the room. Impression: - One small polyp identified and removed. - Normal mucosa in the entire examined colon. - One 8 mm polyp in the distal ascending colon, removed with a cold snare. Resected and retrieved. - The examined portion of the ileum was normal. - Non-bleeding internal hemorrhoids. - The examination was otherwise normal on direct and retroflexion views. Recommendation: - Discharge patient to home. - High fiber diet. - Continue present medications. - Await pathology results. - Repeat colonoscopy in 5-10 years for surveillance based on pathology results. - Return to primary care physician. Procedure Code(s): --- Professional --- 33132, Colonoscopy, flexible; with removal of tumor(s), polyp(s), or other lesion(s) by snare technique G0500, Moderate sedation services provided by the same physician or other qualified health day care center director performing a gastrointestinal endoscopic service that sedation supports, requiring the presence of an independent trained observer to assist in the monitoring of the patient's level of consciousness and physiological status; initial 15 minutes of intra-service time; patient age 5 years or older (additional time may be reported with 01045, as appropriate) Diagnosis Code(s): --- Professional --- K64.8, Other hemorrhoids K63.5, Polyp of colon K64.4, Residual hemorrhoidal skin tags R19.5, Other fecal abnormalities CPT copyright 2020 [employer]. All rights reserved. The codes documented in this report are preliminary and upon swaging machine adjuster review may be revised to meet current compliance requirements. Chance Almanzar MD 04/24/2022 9:25:33 AM Number of Addenda: 0 Note Initiated On: 04/24/2022 8:19 AM Endoscopy Report Procedure Note Chance Almanzar MD - 04/24/2022 Patient Name: Flor Alonso Procedure Date: 04/24/2022 8:19 AM Date of : 1965 Admit Type: Outpatient Age: 56 Note Status: Finalized Attending MD: Chance Almanzar MD Procedure: Colonoscopy Indications: This is the patient's first colonoscopy, Positive fecal immunochemical test Providers: Chance Almanzar MD, Mely Abrams Referring MD: Shilpi Morales Medicines: Midazolam 6 mg IV, Fentanyl 200 micrograms IV, CO2 Complications: No immediate complications. Estimated blood loss: Minimal. Procedure: After I obtained informed consent, the scope was passed under direct vision. Throughout the procedure, the patient's blood pressure, pulse, and oxygen saturations were monitored continuously. The [id number] was introduced through the anus and advanced to 3 cm into the ileum. The colonoscopy was performed without difficulty. The patient tolerated the procedure well. The quality of the bowel preparation was good. The terminal ileum, ileocecal valve, appendiceal orifice, and rectum were photographed. Findings: Skin tags were found on perianal exam. Normal mucosa was found in the entire colon. An 8 mm polyp was found in the distal ascending colon. The polyp was sessile. The polyp was removed with a cold snare. Resection and retrieval were complete. Estimated blood loss was minimal. Verification of patient identification for the specimen was done by the physician and nurse using the patient's name and date. The terminal ileum appeared normal. Non-bleeding internal hemorrhoids were found during retroflexion. The hemorrhoids were small. The exam was otherwise without abnormality on direct and retroflexion views. Moderate Sedation: Moderate (conscious) sedation was administered by the endoscopy nurse and supervised by the endoscopist. The following parameters were monitored: oxygen saturation, heart rate, blood pressure, and response to care. Total physician intraservice time was 11 minutes. This time is the duration from the initial medication administration until the enterprise project manager assists with initial maneuvers (biopsy / polypectomy / etc.), or if no maneuvers are performed, until the endoscopist leaves the room. Impression: - One small polyp identified and removed. - Normal mucosa in the entire examined colon. - One 8 mm polyp in the distal ascending colon, removed with a cold snare. Resected and retrieved. - The examined portion of the ileum was normal. - Non-bleeding internal hemorrhoids. - The examination was otherwise normal on direct and retroflexion views. Recommendation: - Discharge patient to home. - High fiber diet. - Continue present medications. - Await pathology results. - Repeat colonoscopy in 5-10 years for surveillance based on pathology results. - Return to primary care physician. Procedure Code(s): --- Professional --- 05113, Colonoscopy, flexible; with removal of tumor(s), polyp(s), or other lesion(s) by snare technique G0500, Moderate sedation services provided by the same physician or other qualified health day care center director performing a gastrointestinal endoscopic service that sedation supports, requiring the presence of an independent trained observer to assist in the monitoring of the patient's level of consciousness and physiological status; initial 15 minutes of intra-service time; patient age 5 years or older (additional time may be reported with [id number], as appropriate) Diagnosis Code(s): --- Professional --- K64.8, Other hemorrhoids K63.5, Polyp of colon K64.4, Residual hemorrhoidal skin tags R19.5, Other fecal abnormalities CPT copyright 2020 [employer]. All rights reserved. The codes documented in this report are preliminary and upon swaging machine adjuster review may be revised to meet current compliance requirements. Chance Almanzar MD 04/24/2022 9:25:33 AM Number of Addenda: 0 Note Initiated On: 04/24/2022 8:19 AM Endoscopy Report us Shilpi Morales PA-C ET GI PROCEDURE ORDERABLES F inal Result * Pap Smear (02/11/2007 11:51 AM CDT) PAP Smear Liquid Based SEE TEXT No normal range HP CONVERSION Comment: Patient: FLOR ALVES CERVICAL CYTOLOGY REPORT Pathology # [id number] Date Obtained: Date Received: CYTOLOGIC IMPRESSION: Negative for intraepithelial lesion or malignancy. Verified 02/18/07 by: LBM (electronic signature) ADDITIONAL DATA LMP: CLINICAL HIST LIQUID BASED PAP CERVICAL SPECIMEN ADEQUACY: Satisfactory. ENDOCERVICAL CELLS: Present. 02/11/2007 11:5 1 AM CDT us Jens Guerrero MD LAB_1 Final Result HP CONVERSION from Last 3 Months or Most Recently Relevant to Health Maintenance Insurance [employer] Care Teams Mail Order Sorter Relationship Specialty Start Date End Date Shilpi Morales PA-C [address] [place] [address] PCP - General Physician Senior Specialist 03/05/22
--- OUTSIDE RECORDS SUMMARY | 2024-06-25 10:18 | XMS_ITS | Encounter Summary ---
Author Organization [facility] Address [address] [place] [address]. [place] [address] Care Team Providers Care Roll Wrapper Name Role Phone Breanna Martin CNP Unavailable [phone] [facility] Primary Care Pro vider Chris Carver DO Unavailable [phone] Chris Carver DO Unavailable [phone] Breanna Martin CNP Primary Care Provider [phone] Reason for Referral * Consultation (Routine: Next available opening) - Pending Review Specialty Diagnoses / Procedures Referred By Mukul devine Referred To Contact Diagnoses Colon cancer screening Yang Damian MD [facility] [address] [place] [address] Phone: tel: fax: Referral ID Status Reason Start Date Expiration Date V isits Requested Visits Authorized [id number] Pending Review 08/19/2023 08/18/2024 1 1 Question Answer Service: Screening Sedation Concerns: No medical conditions affecting sedation Sedation Type: Moderate/Conscious Sedation Preferred Location: [facility] Scheduling Instructions: [facility] will call you to coordinate your care as prescribed by the provider. If you don t hear from a industrial sales representative within 2 business days, please call . Comments Please be aware that coverage of these services is subject to the terms and limitations of your health insurance plan. Call member services at your health plan with any benefit or coverage questions. [facility] will call you to coordinate your care as prescribed by the provider. If you don t hear from a industrial sales representative within 2 business days, please call . Encounter Details Date Type Department Care Team (Late st Contact Info) Description 08/19/2023 Orders Only [address] [address] Yang Damian MD [facility] [address] [place] [address] Colon cancer screening (Primary Dx) Social History Tobacco Use Types Packs/Day Years [...] re latives? Twice a week 08/07/2023 Attends [employer] Not on file 08/06 Active Member of Clubs or Organizations Not on f ile 08/07/2023 Attends Club or Organization Meetings Not on yumiko e 08/07/2023 Marital Status Not on file 08/07/2023 PHQ-2 Answer Date Recorded PHQ-2 Score 0 08/14/2023 [facility] [place] of Occupat ional Health - Occupational Stress [...] Answer Date Recorded Do you have housing? (Housin g is defined as stable permanent housing and does not include staying ouside in a car, in a tent, in an abandoned building, in an overnight penitentiary, or couch-surfing.) Patient declined 08/07/2023 Are you worried about losing your housing? 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 Not on file Not on file documented as of this encounter Plan of Treatment Upcoming Encounters Date Type Department Care Team (Late st Contact Info) Description 09/21/2024 3:30 PM CDT Office Visit [address] [phone] [place] [address] [place] [address] 6[address]352 Scheduled Referrals Name Type Priority Associated Diagnoses Order Schedule Colonoscopy Screening Group Sales Representative Referral Referral Routine: Next available opening Colon cancer screening Expected: 08/19/2023 (Approximate), Expires: 08/18/2024 documented as of this encounter Visit Diagnoses Diagnosis Colon cancer screening- Primary Special screening for malignant neoplasms, colon documented in this encounter Additional Health Concerns Assessment Noted Time PHQ-9 Depression Total Score: 0 08/07/19 12:02 PM CDT documented as of this encounter Care Teams Roll Wrapper Relationship Specialty Start Date End Date Clinic, [facility] [address] [place] [address] PCP - General 06/30/22 06/14/24 Breanna Martin CNP [address] [place] [address] PCP - General Nurse Practitioner - Family 06/15/24 Breanna Martin CNP [address] [place] [address] Assigned PCP 07/08/21 [place] [id number] [place] [address] Physician pipe finishing supervisor 08/12/23 Chris Car[place] [id number] [place] [address] Assigned OBGYN Provider 09/11/23 documented as of this encounter
--- OUTSIDE RECORDS SUMMARY | 2024-06-25 10:18 | XMS_ITS | Encounter Summary ---
Author Organization [facility] Address [address] [place] [address]. [place] [address] Care Team Providers Care Stock Grader Name Role Phone Breanna Martin CNP Unavailable [phone] [facility] Primary Care Pro vider Chris Carver DO Unavailable [phone] Chris Carver DO Unavailable [phone] Breanna Martin CNP Primary Care Provider [phone] Encounter Details Date Type Department Care Team (Late st Contact Info) Description 08/20/2023 MyC Medical Advice [facility] [address] [place] [address] Priya Michelle Social History Tobacco Use Types Packs/Day Years [...] re latives? Twice a week 08/07/2023 Attends [employer] Not on file 08/06 Active Member of Clubs or Organizations Not on f ile 08/07/2023 Attends Club or Organization Meetings Not on yumiko e 08/07/2023 Marital Status Not on file 08/07/2023 PHQ-2 Answer Date Recorded PHQ-2 Score 0 08/14/2023 [facility] of Occupat ional [facility] - Occupational Stress Questionnaire Answer Date Recorded [...] in an abandoned building, in an overnight care home, or couch-surfing.) Patient declined 08/07/2023 Are you worried about losing your housing? 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 Not on file Not on file documented as of this encounter Plan of Treatment Upcoming Encounters Date Type Department Care Team (Late st Contact Info) Description 09/21/2024 3:30 PM CDT Office Visit [address] [phone] Papito Hilliard DO [address] [place] [address]132 documented as of this encounter Visit Diagnoses Not on filedocumented in this encounter Additional Health Concerns Assessment Noted Time PHQ-9 Depression Total Score: 0 08/07/19 24 12:02 PM CDT documented as of this encounter Care Teams Stock Grader Relationship Specialty Start Date End Date [facility], [address] [address] PCP - General 06/30/22 06/14/24 Breanna Martin CNP [address] [place] [address] PCP - General Nurse Practitioner - Family 06/15/24 Breanna Martin CNP [address] [place] [address] Assigned PCP 07/08/21 [place] [address] [place] [address] Physician event crew technician 08/12/23 [place] [address] [place] [address] Assigned OBGYN Provider 09/11/23 documented as of this encounter
--- OUTSIDE RECORDS SUMMARY | 2024-06-25 10:18 | XMS_ITS | Encounter Summary ---
Author Organization [place] [facility] Address [address] [place] [address]. [place] [address] Care Team Providers Care Silviculturist Name Role Phone Breanna Martin CNP Unavailable [phone] Chris Carver DO Unavailable [phone] Chris Carver DO Unavailable [phone] Breanna Martin CNP Primary Care Provider [phone] Encounter Details Date Type Department Care Team (Late st Contact Info) Description 06/15/2024 1:15 PM RETAIL SERVICE TECHNICIAN Lab [facility] [address] [place] [phone] Wrist pain (Primary Dx) Social History Tobacco Use Types [...] re latives? Twice a week 08/07/2023 Attends [employer] Not on file 08/06 Active Member of Clubs or Organizations Not on f ile 08/07/2023 Attends Club or Organization Meetings Not on yumiko e 08/07/2023 Marital Status Not on file 08/07/2023 PHQ-2 Answer Date Recorded PHQ-2 Score 0 08/14/2023 [facility] of Occupat ional Health [...] in an abandoned building, in an overnight detention, or couch-surfing.) Patient declined 08/07/2023 Are you [...] motionally safe where you currently live? Yes 03/04/2024 Within the past 12 months, h ave you been hit, slapped, kicked or otherwise physically hurt by someone? No 03/04/2024 Within the past 12 months, h ave you been humiliated or emotionally abused in other ways by your partner or ex-partner? 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 Not on file Not on file documented as of this encounter Miscellaneous Notes * Addendum Note - Domonique Rosenberg - 06/15/2024 1:15 PM CSTAddended by: DOMONIQUE ROSENBERG on: 06/15/2024 01:22 PM Modules accepted: Orders [place] SERVICE TECHNICIAN documented in this encounter Plan of Treatment Upcoming Encounters Date Type Department Care Team (Late st Contact Info) Description 09/21/2024 3:30 PM CDT Office Visit [address] [phone] Papito Hilliard, [address] [id number] documented as of this encounter Procedures Procedure Name Priority Date/Time Associated Diagnosis Comments CYCLIC CITRULLINATED PEPTIDE ANTIBODY IGG Routine 06/15/2024 1:28 PM RETAIL SERVICE TECHNICIAN Wrist pain ANTI NUCLEAR SHILOH IGG BY IFA WITH REFLEX Routine 06/15/2024 1:28 PM RETAIL SERVICE TECHNICIAN Wrist pain LYME DISEASE TOTAL ANTIBODIES WITH REFLEX TO CONFIRMATION Routine 06/15/2024 1:28 PM RETAIL SERVICE TECHNICIAN Wrist pain TSH Routine 06/15/2024 1:28 PM RETAIL SERVICE TECHNICIAN Wrist pain RHEUMATOID FACTOR Routine 06/15/2024 1:2 8 PM RETAIL SERVICE TECHNICIAN Wrist pain ERYTHROCYTE SEDIMENTATION RATE AUTO Routine 06/15/2024 1:28 PM RETAIL SERVICE TECHNICIAN Wrist pain CRP INFLAMMATION Routine 06/15/2024 1:28 PM RETAIL SERVICE TECHNICIAN Wrist pain documented in this encounter Results * TSH (06/15/2024 1:28 PM RETAIL SERVICE TECHNICIAN) Pathologist [facility] TSH 1.92 0.30 - 4.20 uIU/mL 06/15/2024 8:24 PM RETAIL SERVICE TECHNICIAN [facility] Blood BLOOD SPECIMEN / Unknown Venipuncture / Unknown 06/15/2024 1:28 PM RETAIL SERVICE TECHNICIAN 06/15/2024 1:28 PM RETAIL SERVICE TECHNICIAN us Breanna Freeman MD LAB - BLOOD ORDERABLES Fin al Result LABORATORY [facility] [address] [facility], [address] [phone] * Rheumatoid factor (06/15/2024 1:28 PM RETAIL SERVICE TECHNICIAN) Pathologist [facility] Rheumatoid Factor <10 <14 IU/mL 06/15/2024 8:24 PM RETAIL SERVICE TECHNICIAN [facility] Blood BLOOD SPECIMEN / Unknown Venipuncture / Unknown 06/15/2024 1:28 PM RETAIL SERVICE TECHNICIAN 06/15/2024 1:28 PM RETAIL SERVICE TECHNICIAN us Breanna Freeman MD LAB - BLOOD ORDERABLES Fin al Result LABORATORY [facility] [address] [facility], [address] [phone] [place] [address] * Erythrocyte sedimentation rate auto (06/15/2024 1:28 PM RETAIL SERVICE TECHNICIAN) Pathologist [facility] Erythrocyte Sedimentation Rate 6 0 - 30 mm/hr 06/15/2024 1:51 PM RETAIL SERVICE TECHNICIAN [facility] Blood BLOOD SPECIMEN / Unknown Venipuncture / Unknown 06/15/2024 1:28 PM RETAIL SERVICE TECHNICIAN 06/15/2024 1:28 PM RETAIL SERVICE TECHNICIAN us Breanna Freeman MD LAB - BLOOD ORDERABLES Fin al Result [facility] LABORATORY [facility] [address] [facility] Lab (no room number, 1st floor of clinic) [place] [address] * Anti Nuclear [place] IgG by IFA with Reflex (06/15/2024 1:28 PM RETAIL SERVICE TECHNICIAN) KATHERIN interpretation Negative Negative 2024 1:49 PM RETAIL SERVICE TECHNICIAN SPECIALTY CORE/PROT/EN DO Comment: Negative: <1:40 Borderline Positive: 1:40 - 1:80 Positive: >1:80 Blood BLOOD SPECIMEN / Unknown Venipuncture / Unknown 06/15/2024 1:28 PM RETAIL SERVICE TECHNICIAN 06/15/2024 1:28 PM RETAIL SERVICE TECHNICIAN Breanna Freeman MD LAB - BLOOD ORDERABLES Fin al Result [facility] SPECIALTY CORE/PROT/ENDO Specialty Core/Prot/Endo [address] [facility] Building, Room [address] * CRP inflammation (06/15/2024 1:28 PM RETAIL SERVICE TECHNICIAN) CRP Inflammation <3.00 <5.00 mg/L 06/15/19 8:24 PM RETAIL SERVICE TECHNICIAN LABORATORY Blood BLOOD SPECIMEN / Unknown Venipuncture / Unknown 06/15/2024 1:28 PM RETAIL SERVICE TECHNICIAN 06/15/2024 1:28 PM RETAIL SERVICE TECHNICIAN Breanna Freeman MD LAB - BLOOD ORDERABLES Fin al Result U LABORATORY [facility] [address] [facility] [address] Building, Room [address] * Cyclic Citrullinated Peptide Antibody IgG (06/15/2024 1:28 PM RETAIL SERVICE TECHNICIAN) Cyclic Citrullinated Peptide Antibody IgG 1.1 <7.0 U/mL 06/16/2024 12:00 PM RETAIL SERVICE TECHNICIAN SPECIALTY CORE/PROT/END O Comment:Negative Blood BLOOD SPECIMEN / Unknown Venipuncture / Unknown 06/15/2024 1:28 PM RETAIL SERVICE TECHNICIAN 06/15/2024 1:28 PM RETAIL SERVICE TECHNICIAN Breanna Freeman MD LAB - BLOOD ORDERABLES Fin al Result Performing Organization Address City/[facility] Co de Phone Number UM SPECIALTY CORE/PROT/ENDO [facility] Specialty Core/Prot/Endo [address] [facility], [address] * LYME DISEASE TOTAL ANTIBODIES WITH REFLEX TO CONFIRMATION (06/15/2024 1:28 PM RETAIL SERVICE TECHNICIAN) Lyme Disease Antibodies Total 0.05 <0.90 06/16/2024 8:10 AM RETAIL SERVICE TECHNICIAN SPECIALTY CORE/PROT/ENDO Comment:Non-reactive, Absenc e of detectable Borrelia burgdorferi antibodies. A non-reactive result does not exclude the possibility of Borrelia burgdorferi infection. If early Lyme disease is suspected, a second sample should be collected and tested 2 to 4 weeks later. Blood BLOOD SPECIMEN / Unknown Venipuncture / Unknown 06/15/2024 1:28 PM RETAIL SERVICE TECHNICIAN 06/15/2024 1:28 PM RETAIL SERVICE TECHNICIAN Breanna Freeman MD LAB - BLOOD ORDERABLES Fin al Result Performing Organization Address City/[facility] Co de Phone Number SPECIALTY CORE/PROT/ENDO Specialty Core/Prot/Endo [address] [facility], [address] documented in this encounter Visit Diagnoses Diagnosis Wrist pain- Primary Pain in joint, forearm documented in this encounter Additional Health Concerns Assessment Noted Time PHQ-9 Depression Total Score: 0 08/07/19 24 12:02 PM CDT documented as of this encounter Care Teams Silviculturist Relationship Specialty Start Date End Date Breanna Martin CNP [address] [place] [address] PCP - General Nurse Practitioner - Family 06/15/24 Breanna Martin CNP [address] [place] [address] Assigned PCP 07/08/21 [place] [address] [place] [address] Physician power checker 08/12/23 [place] [address] [place] [address] Assigned OBGYN Provider 09/11/23 documented as of this encounter
--- OUTSIDE RECORDS SUMMARY | 2024-06-25 10:19 | XMS_ITS | Encounter Summary ---
Author Organization [facility] Address [address], [place] [address] Care Team Providers Care Drugless Physician Name Role Phone Shilpi Morales PA-C Primary Care Provider [phone] Encounter Details Date Type Department Care Team (Late st Contact Info) Description 03/04/2022 Lab Requisition [address] [place] [phone] Heike Alonso, REFRIGERATING MACHINE OPERATOR, DNP [address] [facility] [address] [place], [place] [phone] Encounter for screening for malignant neoplasm of colon Social History Tobacco Use Types Packs/Day Years Used Date Smoking Tobacco: Never Alcohol Use Standard Drinks/Week Comments Yes 0.8 (1 standard drink = 0.6 oz p ure alcohol) 1 xmonth Comments No Sex and Gender Information Value Date Recorded Sex Assigned at Not on file Legal Sex Female 6:54 AM CDT Gender Identity Not on file Sexual Orientation Not on file 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 Not on yumiko e documented as of this encounter Plan of Treatment Upcoming Encounters Date Type Department Care Team (Late Contact Info) Description 07/26/2024 9:30 AM CDT [facility] [address] [facility], [address] [place] [phone] documented as of this encounter Procedures Procedure Name Priority Date/Time Associated Diagnosis Comments FIT,OCCULT BLOOD, STOOL Routine 03/30/2022 9:45 AM LIEUTENANT FIRE FIGHTER Encounter for screening for malignant neoplasm of colon [ICD-10-CM] [facility] FIT KIT Routine 03/05/2022 10: 29 AM LIEUTENANT FIRE FIGHTER Encounter for screening for malignant neoplasm of colon [ICD-10-CM] documented in this encounter Results * (ABNORMAL) FIT Colon Rectal Cancer Screening (03/30/2022 9:45 AM LIEUTENANT FIRE FIGHTER) FIT Specimen 1 Positive( A) Negative 04/03/2022 3:59 AM LIEUTENANT FIRE FIGHTER [facility] Stool Non-blood Collection / Unknown 03/30/2022 9:45 AM LIEUTENANT FIRE FIGHTER 04/02/2022 3:25 PM LIEUTENANT FIRE FIGHTER Heike Liza Alonso APRN, DNP LAB_1 Jo l Result Performing Organization Address City/[facility] Co de Phone Number [address] [phone] * [facility] FIT KIT (03/05/2022 10:29 AM LIEUTENANT FIRE FIGHTER) [facility] FIT KIT SENT Yes 04/02/2022 3:24 PM LIEUTENANT FIRE FIGHTER [facility] KIT RECEIVED Kit Received at [facility] 04/02/2022 3:24 PM LIEUTENANT FIRE FIGHTER [facility] Stool Non-blood Collection / Unknown 03/05/2022 10:29 AM LIEUTENANT FIRE FIGHTER 03/05/2022 10:29 AM LIEUTENANT FIRE FIGHTER Heike Alonso APRN, DNP LAB_1 Jo l Result Performing Organization Address [facility] de Phone Number [address] [phone] documented in this encounter Visit Diagnoses Diagnosis Encounter for screening for malignant neoplasm of colon Special screening for malignant neoplasms, colon documented in this encounter Care Teams Drugless Physician Relationship Specialty Start Date End Date Shilpi Morales PA-C [address] [place] [address] PCP - General Physician Candy Counter Clerk 03/05/22 documented as of this encounter
--- OUTSIDE RECORDS SUMMARY | 2024-06-25 10:19 | XMS_ITS | Continuity of Care Document ---
Author Organization [facility] Address [address] [place] [address] Phone Care Team Providers Care Layout Designer Name Role Phone Crystal Marion MD Unavailable Unavailable Allergies, Adverse Reactions, Alerts Substance Reaction Status Criticality No Known Allergies Active No Inform ation Medications Medication Instructions Dosage Effective Dates (start - stop) Status Comments propranolol 60 mg tablet take 1 tablet by oral route 2 times every day 60 MG - Active omega 6-pul-wow-fish oil 500 mg (200mg-300mg)-1,000 mg capsule - Active Vitamin D3 1,000 unit capsule - Active potassium 99 mg tablet - Active Calcium 500 500 mg calcium (1,250 mg) tablet - Active Advil 200 mg tablet take 2 tablet by ora l route every 12 hours as needed with food as needed 400 MG - Active EPA-DHA 720 290 mg-430 mg-1.4 gram capsule - Active Multitrace-4 Concentrate 10 mg-1 mg-0.5 mg-5 mg/mL intravenous soln - Active Miscellaneous ORAL TABLET cataplex B - Active Collagen Plus Vitamin C 125 mg-740 mg capsule - Active vitamin B12 500 mcg-folic acid 400 mcg tablet - Active Procedures Procedure Date Office/Outpatient Visit, New Advance Directives Directive Yes / No Effective Date File Name No Information Encounters Encounter Description Practice Location Reason(s) For Visit Diagnoses Date Provider Providers Copied on Encounter Office/Outpa tient Visit, New [facility], [address], [place], [address], tel:[phone] [facility], Joint Pain (chief complaint) Polyarthralgi aMyalgiaDry eye syndromeLower extremity cramp and spasm 0 Sanam Rojas. [address], [place], [address], [place]. tel:[phone] Referring Provider: Crystalyoung Marion, [address], [place], [address]. tel:[phone] Family History Family Member Type Diagnosis Age At Onset No Information Payers Payer name Insurance type Covered republican ID Camron lozada(s) [facility] [id number] Social History Type Description Quantity Date Captured Comments Alcohol Use Details Unknown Caffeine Use Details Unknown Tobacco Use Status No Information Smoking Status Former smoker Non-Smoking Tobacco Use Details : No Details Available : No Details Available Sex Female Vital Signs Date / Time: Height Weight BMI Pulse Rate Blood Pressure Temperature Respiratory Rate Body Surface Area Head Circumference Head Circ. Percentile Wt./Mario. Percentile BMI percentile Pulse Ox Inhaled Ox 12:52 PM 64.00 in 58.513 kg (129.00 lbs) 22.1 4 kg/m eter (2) 100/60 mm[Hg] 967.00 F Chief Complaint And Reason For Visit From encounter dated 02/21/2020 13:00'. Joint Pain (chief complaint) Reason For Referral Reason For Referral No Information History Of Present Illness Encounter Date Complaint History Of Prese nt Illness Joint Pain Functional Status Date Functional Assessmen t No Information Instructions Date Instruction Additional Infor mation No Information Assessments Type Assessment Date assessment Polyarthralgia assessment Myalgia assessment Dry eye syndrome assessment Lower extremity cramp and spasm Patient Care Teams Name Effective Dates (start - stop) Status Members No Information
--- OUTSIDE RECORDS SUMMARY | 2024-06-25 10:19 | XMS_ITS | Clinical Summary ---
Author Organization [facility] Address [address] [place] [address]. [place] [address] Care Team Providers Care Fashion Styling Intern Name Role Phone Breanna Martin CNP Unavailable [phone] MehulChris wilkinson DO Unavailable [phone] Chris Carver DO Unavailable [phone] Breanna Martin CNP Primary Care Provider [phone] Allergies Active Allergy Reactions Criticality Noted Date Comments Hydrocodone-Acetaminophen 05/31/2008 PN: LW Reaction: Nausea Medications Multiple Vitamin (DAILY MULTIVITAMIN PO) Take by mouth. Active cholecalciferol (VITAMIN D3) 5000 units CAPS capsule Take by mouth daily And K 8 Active omega 3 1000 MG CAPS Take 2 g by mouth daily 90 capsule 8 Active valACYclovir (VALTREX) 500 MG tabletIndications :Herpes zoster without complication Take 1 tablet (500 mg) by mouth daily 90 tablet 4 Active LORazepam (ATIVAN) 0.5 MG tabletIndications :Anxiety TAKE 1 TABLET BY MOUTH THREE TIMES DAILY NEEDED FOR PANIC ATTACKS. 30 tablet 4 Active sennosides (SENOKOT) 8.6 MG tabletIndications :Constipation, unspecified constipation type Take 1-2 tablets by mouth daily 60 tablet 3 4 Active polyethylene glycol (MIRALAX) 17 GM/Dose powderIndications :Constipation, unspecified constipation type Take 17 g (1 Capful) by mouth daily 578 g 2 4 Active Active Problems Problem Noted Date Diagnosed Date Chronic neck pain - R side since 05/201712/09/19 18 Migraine with aura and witho ut status migrainosus, not intractable 12/08/2017 Bilateral thoracic back pain, unspecified chroni city 09/03/2017 Acquired postural kyphosis 09/03/2017 CARDIOVASCULAR SCREENING; LDL GOAL LESS THAN 160 02/18/2010 Anxiety 05/10/2009 Headaches, tension 01/27/2009 Overview (01/19/2013): Problem list name updated by automated process. Provider to review and confirm Lateral epicondylitis 01/29/2008 Overview (01/29/2008): right Other acne 07/05/2005 Contact dermatitis and other eczema, due to unspecified cause 07/05/2005 Pyelonephritis 12/23/2002 Overview (01/19/2015): Problem list name updated by automated process. Provider to review Resolved Problems Problem Noted Date Diagnosed Date Resolved Date Cervicalgia 09/03/2017 12/08/2017 Cervical segment dysfunction 09/03/2017 12/08/2017 Migraine without status migr ainosus, not intractable, unspecified migraine type 09/03/2017 0 12/08/2017 Neck pain on right side 06/30/201711/20 Migraine 06/17/2011 12/08/2017 Migraine headache 05/02/2009 12/08/2017 Overview (01/20/2012): (Problem list name updated by automated process. Provider to review and confirm.) STRAIN SHOULDER 06/28/2004 06/10/2008 Lateral epicondylitis 05/01/20042005 Overview (01/19/2015): Problem list name updated by automated process. Provider to review Other, mixed, or unspecified nondependent drug abuse, unspecified 12/23/2002 05/01/2004 Panic disorder without agoraphobia 12/23/2002 06/10/2008 Other anxiety states 12/23/2002 009 Encounters Date Type Department Care Team Description 06/15/2024 1:15 PM SAT TUTOR Lab [facility] [address] [place] [phone] Wrist pain (Primary Dx) 06/15/2024 Orders Only [facility] [address] [place] [phone] Breanna Freeman MD Wrist pain (Primary Dx) 06/15/2024 Travel from Last 3 Months Immunizations Name Administration Dates Next Due HepB 09/18/2000,04/10/2000,03/06/2000 TDAP (Adacel,Boostrix) 09/25/2022 TDAP Vaccine (Adacel) 09/07/2018,05/19/2006 Family History Medical History Relation Comments Alcohol/Drug Father ?? Cerebrovascular Disease Father Diabetes Father Hypertension Father Alcohol/Drug Maternal Aunt Heart Disease Maternal Grandmother Alcohol/Drug Maternal Uncle Cancer Mother brain Diabetes Paternal Aunt Diabetes Paternal Uncle Thyroid Disease Sister Arthritis No family hx of Breast Cancer No family hx of Ovarian Cancer No family hx of Relation Status Comments Brother Alive Father Alive Maternal Aunt Maternal Grandmother Maternal Uncle Mother Alive Paternal Aunt Paternal Uncle Sister Alive Son 1 Alive Son 2 Alive Social History Tobacco Use Types Packs/Day Years Used Date Smoking Tobacco: Former Cigarettes 0.3 19 0 04/21/1983 - 04/21/1999 Passive Smoke Exposure: Yes Smokeless Tobacco: Never Tobacco Cessation:Counseling Given: Not Answered Alcohol Use Standard Drinks/Week Comments Not Currently 0 (1 standard drink = 0.6 oz pur e alcohol) 0-3 drinks Q1M Social Connection and Isolation Panel [NHANES] A nswer Date Recorded Frequency of Communication with Friends and Fami ly Not on file 08/07/2023 How often do you get together with friends or re latives? 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 Not on file 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 Not on file Not on file Last Filed Vital Signs Vital Sign Reading Time Taken Comments Blood Pressure 98/62 03/04/2024 11:14 AM SAT TUTOR Pulse 71 03/04/2024 11:14 AM SAT TUTOR Temperature 37.1 C (98.7 F) 03/04/2024 11:14 AM SAT TUTOR Respiratory Rate 12 03/04/2024 11:1 4 AM SAT TUTOR Oxygen Saturation 98% 03/04/2024 11: 14 AM SAT TUTOR Inhaled Oxygen Concentration - - Weight 64.4 kg (141 lb 14.4 oz) 024 11:14 AM SAT TUTOR Height 162.6 cm (5' 4) 03/04/2024 11:1 4 AM SAT TUTOR Body Mass Index 24.36 03/04/2024 11:14 AM SAT TUTOR Plan of Treatment Upcoming Encounters Date Type Department Care Team (Late st Contact Info) Description 09/21/2024 3:30 PM CDT Office Visit [address] [phone] Papito Hilliard, [address] [place] [address] [phone] Health Maintenance Due Date Last Done Comments CT COLONOGRAPHY 1965 FLEX SIG 1965 Pneumococcal Vaccine: 50+ Years (1 of 1 - PCV) 2014 ZOSTER IMMUNIZATION (1 of 2) 2014 FIT 04/03/2023 04/03/2022 MAMMO SCREENING 10/31/2023 10/30/2022, 10/19, 10/26/2021, Additional history exists INFLUENZA VACCINE (#1) 2023 HPV TEST 12/27/2023 12/26/2020, 090 10/2020, 12/26/2020 PAP 12/27/2023 12/26/2020, 10/2020, 12/26/2020, Additional history exists PHQ-2 (once per calendar year) 2024 08/14/2023, 08/08/2023, 08/08/2023, Additional history exists ANNUAL REVIEW OF HM ORDERS 08/07/2024 08/08/2023, LIPID 08/07/2024 08/08/2023, 01/20, 07/13/2021, Additional history exists YEARLY PREVENTIVE VISIT 08/07/2024 08/08/19 24, 02/07/2023, 02/07/2023, Additional history exists GLUCOSE 08/07/2026 08/08/2023, 06/19, 02/08/2022, Additional history exists sDNA (Cologuard) 10/08/2026 10/09/2023, 10/09/2023 ADVANCE CARE PLANNING 03/04/2029 03/04/2024 , 08/08/2023, 07/24/2021 COLONOSCOPY 04/24/2032 04/24/2022, 04/2014, 04/20/2014, Additional history exists COLORECTAL CANCER SCREENING 04/24/2032 DTAP/TDAP/TD IMMUNIZATION (4 - Td or Tdap) 09/25/2032 09/25/2022, 09/07/2018, 05/19/2006 COVID-19 Vaccine ( season) 2112 Postponed from 12/21/2023 (Patient Declined) HEPATITIS B IMMUNIZATION Completed 001, 04/10/2000, 03/06/2000 MIGRAINE ACTION PLAN Completed 01/14/2013, 06/17/19 12 HEPATITIS C SCREENING Completed 07/15/2022 , 04/23/2013, 05/19/2006 HIV SCREENING Completed 07/15/2022, 04/23/2013 HPV IMMUNIZATION Aged Out No longer e ligible based on patient's age to complete this topic MENINGITIS IMMUNIZATION Aged Out No l onger eligible based on patient's age to complete this topic Procedures Procedure Name Priority Date/Time Associated Diagnosis Comments LYME DISEASE TOTAL ANTIBODIES WITH REFLEX TO CONFIRMATION Routine 06/15/2024 1:28 PM SAT TUTOR Wrist pain TSH Routine 06/15/2024 1:28 PM SAT TUTOR Wrist pain RHEUMATOID FACTOR Routine 06/15/2024 1:2 8 PM SAT TUTOR Wrist pain ERYTHROCYTE SEDIMENTATION RATE AUTO Routine 06/15/2024 1:28 PM SAT TUTOR Wrist pain ANTI NUCLEAR SHILOH IGG BY IFA WITH REFLEX Routine 06/15/2024 1:28 PM SAT TUTOR Wrist pain CRP INFLAMMATION Routine 06/15/2024 1:28 PM SAT TUTOR Wrist pain CYCLIC CITRULLINATED PEPTIDE ANTIBODY IGG Routine 06/15/2024 1:28 PM SAT TUTOR Wrist pain COLOGUARD(EXACT SCIENCES) Routine 10/09/2023 11:50 AM CDT Special screening for malignant neoplasms, colon COMPREHENSIVE METABOLIC PANEL Routine 08/08/2023 10:05 AM CDT Screening for diabetes mellitus LIPID REFLEX TO DIRECT LDL PANEL Routine 08/08/2023 10:05 AM CDT Screening cholesterol level MA SCREENING WITH IMPLANTS BILATERAL W/ BRAYAN Routine 10/30/2022 3:15 PM CDT Breast cancer screening by mammogram ABSTRACT PAP ([facility] EXTERNAL RESULT) Routine 12/26/2020 10:51 AM CDT ABSTRACT HPV ([facility] EXTERNAL RESULT) Routine 12/26/2020 10:51 AM CDT COLONOSCOPY Routine 10/05/2013 8:36 AM CDT HIV ANTIGEN ANTIBODY COMBO Routine 04/23/2013 12:35 PM SAT TUTOR Contact with or exposure to other communicable diseases HEPATITIS C RNA, QUANTITATIVE BY PCR Routine 04/23/2013 12:35 PM SAT TUTOR Contact with or exposure to other communicable diseases from Last 3 Months or Most Recently Relevant to Health Maintenance Results * Cyclic Citrullinated Peptide Antibody IgG (06/15/2024 1:28 PM SAT TUTOR) [facility] Cyclic Citrullinated Peptide Antibody IgG 1.1 <7.0 U/mL 06/16/2024 12:00 PM SAT TUTOR SPECIALTY CORE/PROT/END O Comment:Negative Blood BLOOD SPECIMEN / Unknown Venipuncture / Unknown 06/15/2024 1:28 PM SAT TUTOR 06/15/2024 1:28 PM SAT TUTOR Breanna Freeman MD LAB - BLOOD ORDERABLES Fin al Result SPECIALTY CORE/PROT/ENDO Specialty Core/Prot/Endo [address] [facility], [address] * Anti Nuclear Shiloh IgG by IFA with Reflex (06/15/2024 1:28 PM SAT TUTOR) [facility] KATHERIN interpretation Negative Negative 2024 1:49 PM SAT TUTOR SPECIALTY CORE/PROT/EN DO Comment: Negative: <1:40 Borderline Positive: 1:40 - 1:80 Positive: >1:80 Blood BLOOD SPECIMEN / Unknown Venipuncture / Unknown 06/15/2024 1:28 PM SAT TUTOR 06/15/2024 1:28 PM SAT TUTOR Breanna Freeman MD LAB - BLOOD ORDERABLES Fin al Result SPECIALTY CORE/PROT/ENDO Specialty Core/Prot/Endo [address] [facility], [address] * LYME DISEASE TOTAL ANTIBODIES WITH REFLEX TO CONFIRMATION (06/15/2024 1:28 PM SAT TUTOR) [facility] Lyme Disease Antibodies Total 0.05 <0.90 06/16/2024 8:10 AM SAT TUTOR SPECIALTY CORE/PROT/ENDO Comment:Non-reactive, Absenc e of detectable Borrelia burgdorferi antibodies. A non-reactive result does not exclude the possibility of Borrelia burgdorferi infection. If early Lyme disease is suspected, a second sample should be collected and tested 2 to 4 weeks later. Blood BLOOD SPECIMEN / Unknown Venipuncture / Unknown 06/15/2024 1:28 PM SAT TUTOR 06/15/2024 1:28 PM SAT TUTOR Breanna Freeman MD LAB - BLOOD ORDERABLES Fin al Result [facility] SPECIALTY CORE/PROT/ENDO UM Specialty Core/Prot/Endo [address] [facility], [address] * TSH (06/15/2024 1:28 PM SAT TUTOR) Pathologist [facility] TSH 1.92 0.30 - 4.20 uIU/mL 06/15/2024 8:24 PM SAT TUTOR U LABORATORY Blood BLOOD SPECIMEN / Unknown Venipuncture / Unknown 06/15/2024 1:28 PM SAT TUTOR 06/15/2024 1:28 PM SAT TUTOR Breanna Freeman MD LAB - BLOOD ORDERABLES Fin al Result LABORATORY [facility] [place] [facility] [address] [facility], Room [address] [place] [address] * Rheumatoid factor (06/15/2024 1:28 PM SAT TUTOR) Pathologist [facility] Rheumatoid Factor <10 <14 IU/mL 06/15/2024 8:24 PM SAT TUTOR [facility] LABORATORY Blood BLOOD SPECIMEN / Unknown Venipuncture / Unknown 06/15/2024 1:28 PM SAT TUTOR 06/15/2024 1:28 PM SAT TUTOR Breanna Freeman MD LAB - BLOOD ORDERABLES Fin al Result U LABORATORY [facility] [place] [facility] [address] [facility], Room [address] * Erythrocyte sedimentation rate auto (06/15/2024 1:28 PM SAT TUTOR) Erythrocyte Sedimentation Rate 6 0 - 30 mm/hr 06/15/2024 1:51 PM SAT TUTOR [facility] LABORATORY Blood BLOOD SPECIMEN / Unknown Venipuncture / Unknown 06/15/2024 1:28 PM SAT TUTOR 06/15/2024 1:28 PM SAT TUTOR Breanna Freeman MD LAB - BLOOD ORDERABLES Fin al Result LABORATORY [facility] [address] [facility] (no room number, 1st floor of clinic) [place] [phone] * CRP inflammation (06/15/2024 1:28 PM SAT TUTOR) CRP Inflammation <3.00 <5.00 mg/L 06/15/19 8:24 PM SAT TUTOR [facility] LAB[facility]ATORY Blood BLOOD SPECIMEN / Unknown Venipuncture / Unknown 06/15/2024 1:28 PM SAT TUTOR 06/15/2024 1:28 PM SAT TUTOR Breanna Freeman MD LAB - BLOOD ORDERABLES Fin al Result [facility] LABORATORY [facility] [place] [facility] [address] [facility], [address] [place] [phone] * COLOGUARD(Ovelin) (10/09/2023 11:50 AM CDT) COLOGUARD-ABSTRACT Negative Negative 2023 7:44 PM CDT [facility] (CLIA #:[id number]) Comment: NEGATIVE TEST RESULT. A negative Cologuard result indicates a low likelihood that a colorectal cancer (CRC) or advanced adenoma (adenomatous polyps with more advanced pre-malignant features) is present. The chance that a person with a negative Cologuard test has a colorectal cancer is less than 1 in 1500 (negative predictive value >99.9%) or has an advanced adenoma is less than 5.3% (negative predictive value 94.7%). These data are based on a prospective cross-sectional study of 10,000 individuals at average risk for colorectal cancer who were screened with both Cologuard and colonoscopy. (Shweta Ritchie al, N Engl J Med 2014;370(14):5845-8612) The normal value (reference range) for this assay is negative. COLOGUARD RE-SCREENING RECOMMENDATION: Periodic colorectal cancer screening is an important part of preventive healthcare for asymptomatic individuals at average risk for colorectal cancer. Following a negative Cologuard result, the [place] [employer] and U.S. Multi-Society Task Force screening guidelines recommend a Cologuard re-screening interval of 3 years. References: [place] [employer] Guideline for Colorectal Cancer Screening: https://www.cancer.org/cancer/pgvxp-kdtfxv-conkmo/uulqykbkr-lxlziezwh-kisxaix/ac s-rec ommendations.html.; Ashkan DK, Gato OSORIO, Sera TilleyK, Colorectal Cancer Screening: Recommendations for Physicians and Patients from the U.S. Multi-Society Task Force on Colorectal Cancer Screening , Am J Gastroenterology 2017; 112:5387-2592. TEST DESCRIPTION: Composite algorithmic analysis of stool DNA-biomarkers with hemoglobin immunoassay. Quantitative values of individual biomarkers are not reportable and are not associated with individual biomarker result reference ranges. Cologuard is intended for colorectal cancer screening of adults of either sex, 45 years or older, who are at average-risk for colorectal cancer (CRC). Cologuard has been approved for use by the U.S. FDA. The performance of Cologuard was established in a cross sectional study of average-risk adults aged 50-84. Cologuard performance in patients ages 45 to 49 years was estimated by sub-group analysis of near-age groups. Colonoscopies performed for a positive result may find as the most clinically significant lesion: colorectal cancer [4.0%], advanced adenoma (including sessile serrated polyps greater than or equal to 1cm diameter) [20%] or non- advanced adenoma [31%]; or no colorectal neoplasia [45%]. These estimates are derived from a prospective cross-sectional screening study of 10,000 individuals at average risk for colorectal cancer who were screened with both Cologuard and colonoscopy. (Shweta Fairbanks, N Engl J Med 2014;370(14):7949-5751.) Cologuard may produce a false negative or false positive result (no colorectal cancer or precancerous polyp present at colonoscopy follow up). A negative Cologuard test result does not guarantee the absence of CRC or advanced adenoma (pre-cancer). The current Cologuard screening interval is every 3 years. ([place] [employer] and U.S. Multi-Society Task Force). Cologuard performance data in a 10,000 patient pivotal study using colonoscopy as the reference method can be accessed at the following location: www.QualMetrix/results. Additional description of the Cologuard test process, warnings and precautions can be found at www.cologuard.com. Stool specimen (specimen) 10/09/2023 11:50 AM CDT 10/10/2023 9:55 AM CDT Breanna Martin [facility] Final Res ult [facility] [address] [phone] [facility] (CLIA #:[id number]) [address] [facility] [place] [address] * (ABNORMAL) Lipid panel reflex to direct LDL Non-fasting (08/08/2023 10:05 AM CDT) Cholesterol 230(H) <200 mg/dL 08/10/2023 11:23 AM CDT [facility] Triglycerides 42 <150 mg/dL 08/10/2023 11:23 AM CDT [facility] Direct Measure HDL 68 >=50 mg/dL 08/10/2023 11:23 AM CDT [facility] LDL Cholesterol Calculated 154(H) <=100 mg/dL 08/10/2023 11:23 AM CDT [facility] Non HDL Cholesterol 162(H) <130 mg/dL 08/10/2023 11:23 AM CDT [facility] Patient Fasting > 8hrs? Yes 08/10/2023 11:23 AM CDT [facility] Blood BLOOD SPECIMEN / Unknown Venipuncture / Unknown 08/08/2023 10:05 AM CDT 08/08/2023 10:05 AM CDT Narrative [facility] - 08/10/2023 11:23 AM CDT Cholesterol Desirable: <200 mg/dL Triglycerides Normal: Less than 150 mg/dL Borderline High: 150-199 mg/dL High: 200-499 mg/dL Very High: Greater than or equal to 500 mg/dL Direct Measure HDL Female: Greater than or equal to 50 mg/dL Male: Greater than or equal to 40 mg/dL LDL Cholesterol Desirable: <100mg/dL Above Desirable: 100-129 mg/dL Borderline High: 130-159 mg/dL High: 160-189 mg/dL Very High: >= 190 mg/dL Non HDL Cholesterol Desirable: 130 mg/dL Above Desirable: 130-159 mg/dL Borderline High: 160-189 mg/dL High: 190-219 mg/dL Very High: Greater than or equal to 220 mg/dL Breanna Martin [employer]ET[employer] INTERN LAB - BLOOD ORDERABLES Fi nal Result [facility] LABORATORY [facility] [place] [address] [facility], [address] [place] [phone] * Comprehensive metabolic panel (BMP + Alb, Alk Phos, ALT, AST, Total. Bili, TP) (08/08/2023 10:05 AMCDT) [facility] Sodium 139 135 - 145 mmol/L 08/10/2023 11:23 AM CDT [facility] Comment:Reference intervals for this test were updated on 01/14/2023 to more accurately reflect our healthy population. There may be differences in the flagging of prior results with similar values performed with this method. Interpretation of those prior results can be made in the context of the updated reference intervals. Potassium 5.2 3.4 - 5.3 mmol/L 08/10/2023 11:23 AM CDT [facility] Carbon Dioxide (CO2) 26 22 - 29 mmol/L 08/10/2023 11:23 AM CDT [facility] Anion Gap 10 7 - 15 mmol/L 08/10/2023 11:23 AM CDT [facility] Urea Nitrogen 18.0 6.0 - 20.0 mg/dL 08/10/2023 11:23 AM CDT [facility] Creatinine 0.75 0.51 - 0.95 mg/dL 08/10/2023 11:23 AM CDT [facility] GFR Estimate >90 >60 mL/min/1. 73m2 08/10/2023 11:23 AM CDT [facility] Calcium 9.7 8.6 - 10.0 mg/dL 08/10/2023 11:23 AM CDT [facility] Chloride 103 98 - 107 mmol/L 08/10/2023 11:23 AM CDT [facility] Glucose 80 70 - 99 mg/dL 08/10/2023 11:23 AM CDT [facility] Alkaline Phosphatase 52 40 - 150 U/L 08/10/2023 11:23 AM CDT [facility] Comment:Reference intervals for this test were updated on 03/04/2023 to more accurately reflect our healthy population. There may be differences in the flagging of prior results with similar values performed with this method. Interpretation of those prior results can be made in the context of the updated reference intervals. AST 24 0 - 45 U/L 08/10/2023 11:23 AM CDT [facility] Comment:Reference intervals for this test were updated on 09/30/2022 to more accurately reflect our healthy population. There may be differences in the flagging of prior results with similar values performed with this method. Interpretation of those prior results can be made in the context of the updated reference intervals. ALT 24 0 - 50 U/L 08/10/2023 11:23 AM CDT [facility] Comment:Reference intervals for this test were updated on 09/30/2022 to more accurately reflect our healthy population. There may be differences in the flagging of prior results with similar values performed with this method. Interpretation of those prior results can be made in the context of the updated reference intervals. Protein Total 6.8 6.4 - 8.3 g/dL 08/10/2023 11:23 AM CDT [facility] Albumin 4.5 3.5 - 5.2 g/dL 08/10/2023 11:23 AM CDT [facility] Bilirubin Total 0.3 <=1.2 mg/dL 08/10/2023 11:23 AM CDT [facility] Blood BLOOD SPECIMEN / Unknown Venipuncture / Unknown 08/08/2023 10:05 AM CDT 08/08/2023 10:05 AM CDT Breanna Martin CNP LAB - BLOOD ORDERABLES Fi nal Result [facility] [address] [facility], [address] [phone], [facility] * MA Screen with Implants Bilateral w/Brayan (10/30/2022 3:15 PM CDT) Anatomical Region Laterality Modality Breast Bilateral Mammography Impressions 10/31/2022 10:33 AM CDT IMPRESSION: ACR BI-RADS Category 2: Benign RECOMMENDED FOLLOW-UP: Annual routine screening mammogram The results and recommendations of this examination will be communicated to the patient. Cem Crawford MD Narrative 10/31/2022 10:33 AM CDT BILATERAL FULL FIELD DIGITAL SCREENING MAMMOGRAM WITH TOMOSYNTHESIS Performed on: 10/30/22 Compared to: 10/26/2021 and 02/09/2014 Technique: This study was evaluated with the assistance of Computer-Aided Detection. Breast Tomosynthesis was used in interpretation. Findings: The breasts are heterogeneously dense, which may obscure small masses. There are breast augmentation changes in both breasts. There is no radiographic evidence of malignancy. Breanna Martin CNP IMG MAMMOGRAPHY ORDERABLE S Final Result * Abstract HPV (HIM External Result) (12/26/2020 10:51 AM CDT) HPV Abstract See Scanned Document [facility] 12/26/2020 10:5 1 AM CDT Narrative [facility] - 12/26/2020 10:51 AM CDT PAP SMEAR KATHLEEN TORO us Provider Outside LAB - HIM EXTERNAL RESULT Final Result [facility] [address] [place], [place] [address] [[email or web address]] [phone] * Abstract PAP (HIM External Result) (12/26/2020 10:51 AM CDT) PAP-ABSTRACT See Scanned Document [facility] 12/26/2020 10:5 1 AM CDT Narrative [facility] - 12/26/2020 10:51 AM CDT PAP SMEAR KATHLEEN TORO us Provider Outside LAB - HIM EXTERNAL RESULT Final Result [facility] [address] [facility] [place] [address], [facility] [phone] * COLONOSCOPY (10/05/2013 8:36 AM CDT) COLONOSCOPY [facility] Patient Name: Flor Dentmarilynnjerilyn Procedure Date: 10/05/2013 8:36:58 AM Date of : 1965 Admit Type: Outpatient Age: 48 Gender: Female Attending MD: Yang Robledo MD Procedure: Colonoscopy Indications: Screening for colorectal malignant neoplasm Providers: Yang Damian MD Referring MD: Kadi Baker Medicines: Midazolam 2 mg IV, Fentanyl 100 micrograms IV Complications: No immediate complications Procedure: Pre-Anesthesia Assessment: - Prior to the procedure, a History and Physical was performed, and patient medications and allergies were reviewed. The patient is competent. The risks and benefits of the procedure and the sedation options and risks were discussed with the patient. All questions were answered and informed consent was obtained. Patient identification and proposed procedure were verified by the physician in the pre-procedure area. Mental Status Examination: alert and oriented. Airway Examination: normal oropharyngeal airway and neck mobility. Respiratory Examination: clear to auscultation. CV Examination: normal. Prophylactic Antibiotics: The patient does not require prophylactic antibiotics. Prior Anticoagulants: The patient has taken no previous anticoagulant or antiplatelet agents. ASA Grade Assessment: I - A normal, healthy patient. After reviewing the risks and benefits, the patient was deemed in satisfactory condition to undergo the procedure. The anesthesia plan was to use moderate sedation / analgesia (conscious sedation). Immediately prior to administration of medications, the patient was re-assessed for adequacy to receive sedatives. The heart rate, respiratory rate, oxygen saturations, blood pressure, adequacy of pulmonary ventilation, and response to care were monitored throughout the procedure. The physical status of the patient was re-assessed after the procedure. After obtaining informed consent, the colonoscope was passed under direct vision. Throughout the procedure, the patient's blood pressure, pulse, and oxygen saturations were monitored continuously. The [id number] was introduced through the anus and advanced to the cecum, identified by appendiceal orifice & ileocecal valve. The colonoscopy was performed without difficulty. The patient tolerated the procedure well. The quality of the bowel preparation was good. Findings: The perianal and digital rectal examinations were normal. The entire examined colon appeared normal on direct and retroflexion views. Impression: - The entire examined colon is normal on direct and retroflexion views. Recommendation: - Repeat colonoscopy in 10 years for screening purposes. Electronically signed by Yang Damian MD __ Yang Damian MD Signed Date: 10/05/2013 9:01:46 AM Number of Addenda: 0 I was physically present for the entire viewing portion of the exam. Note Initiated On: 10/05/2013 8:36:58 AM Scope Withdrawal Time: 0 hours 6 minutes 26 seconds Scope Withdrawal Time: 0 hours 6 minutes 26 seconds Total Procedure Duration: 0 hours 13 minutes 39 seconds Total Procedure Duration: 0 hours 13 minutes 39 seconds RADIOLOGY RESULTS 10/05/2013 8:36 AM CDT us Kadi Hsieh AIRCRAFT ENGINE TECHNICIAN SPORTS TEAM MARKETING INTERN PROCEDURES Final Result RADIOLOGY RESULTS * HIV Antigen Antibody Combo (04/23/2013 12:35 PM SAT TUTOR) HIV Antigen Antibody Combo Nonreactive HIV-1 p24 Ag & HIV-1/HIV-2 Ab Not Detected NR [facility] Blood specimen (specimen) 04/23/2013 12:35 PM SAT TUTOR 04/23/2013 12:36 PM SAT TUTOR us Michelle Reyes MD LAB - BLOOD ORDERABLES Final Res ult Performing Organization Address [facility] Co de Phone Number [facility] [address] [place] [address] * Hepatitis C RNA, quantitative (04/23/2013 12:35 PM SAT TUTOR) HCV RNA Quant IU/ml <12 0 - 12 IU/mL [facility] Log of HCV RNA Qt <1.1 Assay methodology is polymerase chain reaction (PCR) using FDA approved [place] RealTime HCV test. The International Unit (IU) is a designated unit value assigned to the International Standard for Nucleic Acid Amplification Technology Assays for HCV RNA which is accepted by the WHO Expert Committee on Biological Standardization. 0 - 1.1 Log IU/mL [facility] Blood specimen (specimen) 04/23/2013 12:35 PM SAT TUTOR 04/23/2013 12:36 PM SAT TUTOR us Michelle Reyes MD LAB - BLOOD ORDERABLES Final Res ult [facility] [address] [place] [address], [facility] from Last 3 Months or Most Recently Relevant to Health Maintenance Insurance [place] [employer] [place] Care Teams Fashion Styling Intern Relationship Specialty Start Date End Date Breanna Martin CNP [address] [place] [address] [id number] PCP - General Nurse Practitioner - Family 06/15/24 Breanna Martin CNP [address] [place] [address] [id number] Assigned PCP 07/08/21 [place] [id number] [place] [address] 19941 Physician american sign language teacher 08/12/23 [place] [address] [place] [address] 060[address] Assigned OBGYN Provider 09/11/23
--- OUTSIDE RECORDS SUMMARY | 2024-06-25 10:19 | XMS_ITS | Encounter Summary ---
Author Organization [place] Address [address] [place] [address]. [place] [address] Care Team Providers Care Floor Covering Printer Assistant Name Role Phone Breanna Martin CNP Unavailable [phone] Chris Carver DO Unavailable [phone] Chris Carver DO Unavailable [phone] Breanna Martin CNP Primary Care Provider Encounter Details Date Type Department Care Team (Late st Contact Info) Description 06/15/[address] [facility] [address] [place] [phone] Breanna Freeman MD [facility] [address] [place] [address] Wrist pain (Primary Dx) Social History Tobacco [...] re latives? Twice a week 08/07/2023 Attends [employer] Services Not on file 08/06 Active Member of Clubs or Organizations Not on f ile 08/07/2023 Attends Club or Organization Meetings Not on yumiko e 08/07/2023 Marital Status Not on file 08/07/2023 PHQ-2 Answer Date Recorded PHQ-2 Score 0 08/14/2023 [facility] - Occupational Stress Questionnaire Answer Date [...] in an abandoned building, in an overnight longterm, or couch-surfing.) Patient declined 08/07/2023 Are you [...] on file Legal Sex Female 3:21 AM ACCOUNTS PAYABLE ACCOUNTANT Gender Identity Female 05/29/2018 6:02 PM ACCOUNTS PAYABLE ACCOUNTANT Sexual Orientation Not on file Occupation Industry Job Start Date Job End Date part time Not on file Not on file 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 Not on file Not on file documented as of this encounter Plan of Treatment Upcoming Encounters Date Type Department Care Team (Late st Contact Info) Description 09/21/2024 3:30 PM CDT Office Visit [address] [phone] Papito Hilliard DO [address] [place] [address] [phone] documented as of this encounter Results * TSH (06/15/2024 1:28 PM ACCOUNTS PAYABLE ACCOUNTANT) [facility] TSH 1.92 0.30 - 4.20 uIU/mL 06/15/2024 8:24 PM ACCOUNTS PAYABLE ACCOUNTANT [facility] Blood BLOOD SPECIMEN / Unknown Venipuncture / Unknown 06/15/2024 1:28 PM ACCOUNTS PAYABLE ACCOUNTANT 06/15/2024 1:28 PM ACCOUNTS PAYABLE ACCOUNTANT us Breanna Freeman MD LAB - BLOOD ORDERABLES Fin al Result U LABORATORY [facility] [address] [facility] [address] Building, [address] [place] [address], [facility] * Rheumatoid factor (06/15/2024 1:28 PM ACCOUNTS PAYABLE ACCOUNTANT) [facility] Rheumatoid Factor <10 <14 IU/mL 06/15/2024 8:24 PM ACCOUNTS PAYABLE ACCOUNTANT [facility] Blood BLOOD SPECIMEN / Unknown Venipuncture / Unknown 06/15/2024 1:28 PM ACCOUNTS PAYABLE ACCOUNTANT 06/15/2024 1:28 PM ACCOUNTS PAYABLE ACCOUNTANT Breanna Freeman MD LAB - BLOOD ORDERABLES Fin al Result [facility] [address] [facility] [address] Building, [address] [place] [address], [place] * Erythrocyte sedimentation rate auto (06/15/2024 1:28 PM ACCOUNTS PAYABLE ACCOUNTANT) Erythrocyte Sedimentation Rate 6 0 - 30 mm/hr 06/15/2024 1:51 PM ACCOUNTS PAYABLE ACCOUNTANT [facility] Blood BLOOD SPECIMEN / Unknown Venipuncture / Unknown 06/15/2024 1:28 PM ACCOUNTS PAYABLE ACCOUNTANT 06/15/2024 1:28 PM ACCOUNTS PAYABLE ACCOUNTANT Breanna Freeman MD LAB - BLOOD ORDERABLES Fin al Result LABORATORY [facility] [address] [place] [address] Lab (no room number, 1st floor of clinic) [place] [address] * Anti Nuclear [place] IgG by IFA with Reflex (06/15/2024 1:28 PM ACCOUNTS PAYABLE ACCOUNTANT) Pathologist [facility] KATHERIN interpretation Negative Negative 2024 1:49 PM ACCOUNTS PAYABLE ACCOUNTANT [facility] DO Comment: Negative: <1:40 Borderline Positive: 1:40 - 1:80 Positive: >1:80 Blood BLOOD SPECIMEN / Unknown Venipuncture / Unknown 06/15/2024 1:28 PM ACCOUNTS PAYABLE ACCOUNTANT 06/15/2024 1:28 PM ACCOUNTS PAYABLE ACCOUNTANT Breanna Freeman MD LAB - BLOOD ORDERABLES Fin al Result [facility]ENDO [facility]Endo [address] [facility] [address] Building, Room [address] [place] [address] * CRP inflammation (06/15/2024 1:28 PM ACCOUNTS PAYABLE ACCOUNTANT) CRP Inflammation <3.00 <5.00 mg/L 06/15/19 8:24 PM ACCOUNTS PAYABLE ACCOUNTANT [facility] Blood BLOOD SPECIMEN / Unknown Venipuncture / Unknown 06/15/2024 1:28 PM ACCOUNTS PAYABLE ACCOUNTANT 06/15/2024 1:28 PM ACCOUNTS PAYABLE ACCOUNTANT Breanna Freeman MD LAB - BLOOD ORDERABLES Fin al Result [facility]ORY [facility] [address] [facility], Room [address] [place] [address] * Cyclic Citrullinated Peptide Antibody IgG (06/15/2024 1:28 PM ACCOUNTS PAYABLE ACCOUNTANT) Cyclic Citrullinated Peptide Antibody IgG 1.1 <7.0 U/mL 06/16/2024 12:00 PM ACCOUNTS PAYABLE ACCOUNTANT [facility] O Comment:Negative Blood BLOOD SPECIMEN / Unknown Venipuncture / Unknown 06/15/2024 1:28 PM ACCOUNTS PAYABLE ACCOUNTANT 06/15/2024 1:28 PM ACCOUNTS PAYABLE ACCOUNTANT Breanna Freeman MD LAB - BLOOD ORDERABLES Fin al Result [facility]o [address] [facility], [address] documented in this encounter Visit Diagnoses Diagnosis Wrist pain- Primary Pain in joint, forearm documented in this encounter Additional Health Concerns Assessment Noted Time PHQ-9 Depression Total Score: 0 08/07/19 24 12:02 PM CDT documented as of this encounter Care Teams Floor Covering Printer Assistant Relationship Specialty Start Date End Date Breanna Martin CNP [address] [place] [phone] PCP - General Nurse Practitioner - Family 06/15/24 Breanna Martin CNP [address] [place] [id number] Assigned PCP 07/08/21 [place] [address] [place] [address] 13890 Physician cash reconciliation specialist 08/12/23 [place] [address] [place] [address] 85170 Assigned OBGYN Provider 09/11/23 documented as of this encounter
--- OUTSIDE RECORDS SUMMARY | 2024-06-25 10:19 | XMS_ITS | Encounter Summary ---
Author Organization [place] Address [address] [place] [address]. [place] [address] Care Team Providers Care Timber Supervisor Name Role Phone Breanna Martin CNP Unavailable [phone] Chris Carver DO Unavailable [phone] Chris Carver DO Unavailable [phone] Breanna Martin CNP Primary Care Provider [phone] Encounter Details Date Type Department Care Team (Latest Contact Info) Description 06/15/2024 Travel Social History Tobacco Use Types Packs/Day Years [...] re latives? Twice a week 08/07/2023 Attends [employer] Services Not on file 08/06 Active Member of Clubs or Organizations Not on f ile 08/07/2023 Attends Club or Organization Meetings Not on yumiko e 08/07/2023 Marital Status Not on file 08/07/2023 PHQ-2 Answer Date Recorded PHQ-2 Score 0 08/14/2023 [facility] - Occupational Stress [...] in an abandoned building, in an overnight residential, or couch-surfing.) Patient declined 08/07/2023 Are you worried about losing your housing? 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 Not on file Not on file documented as of this encounter Plan of Treatment Upcoming Encounters Date Type Department Care Team (Late st Contact Info) Description 09/21/2024 3:30 PM CDT Office Visit [address] [phone] Papito Hilliard DO [address] [place] [address] [phone] documented as of this encounter Visit Diagnoses Not on filedocumented in this encounter Additional Health Concerns Assessment Noted Time PHQ-9 Depression Total Score: 0 08/07/19 24 12:02 PM CDT documented as of this encounter Care Teams Timber Supervisor Relationship Specialty Start Date End Date Breanna Martin CNP [address] [place] [address] [phone] PCP - General Nurse Practitioner - Family 06/15/24 Breanna Martin CNP [address] [place] [address]10 Assigned PCP 07/08/21 [place] [address] [place] [address]99 Physician pocket creaser 08/12/23 [place] [address] [address], [place] [address] Assigned OBGYN Provider 09/11/23 documented as of this encounter
[2024-06-25 10:34] VITALS: BP 106/67; PULSE 66; RESP 16; TEMP 37.1; O2SAT 96; BMI 24.5
--- NOTE | 2024-06-25 10:49 | ED.GENADULT ---
HPI - General Adult General Chief complaint: Extremity Pain/Injury, Upper Stated complaint: L shoulder pain Time Seen by Provider: 06/25/24 10:48 History of Present Illness HPI narrative: Patient reports history of left rotator cuff issues, does PT for this. Patient reports pain down her left arm with some numbness and sharp pain up in shoulder. 58-year-old woman presenting to emergency department increasing left shoulder area pain. Reports a history of problems with this shoulder; specifically rotator cuff concerns. History of therapy for it. Apparently has not had imaging. She has been having some discomfort radiating down her left arm now. Not really with weakness. No neck pain. Pain affecting sleep. 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 Related Data Home Medications ?Medication ?Instructions ?Recorded ?Confirmed estradiol 0.01% (0.1 mg/gram) 2 g vaginal 2XW 06/25/24 06/25/24 vaginal cream Allergies Allergy/AdvReac Type Severity Reaction Status Date / Time No Known Drug Allergies Allergy Verified 06/25/24 10:33 Review of Systems Status of ROS: Reports: 6 or more systems reviewed and unremarkable except as noted in History and below [facility] Social History Smoking Status: Former smoker Do you use any of these nicotine containing products: None Second hand tobacco smoke exposure: No How often do you have a drink containing alcohol: never AUDIT-C Alcohol total score: 0 Non-prescribed substance use: denies use service: No Exam Narrative: Exam Narrative: Pleasant. NAD. Neck is supple. Movement of her neck does not recreate this discomfort. Good strength to resisted internal and external rotation the shoulder. Good muscle tone. Not with significant pain to palpation. No AC joint area tenderness. Abduction is with some discomfort Somewhat sore to palpation in the anterior shoulder. No pain over head of biceps insertion. Empty can testing causes most discomfort. Const: Vital Signs, click to edit/add: Vital Signs - 24 hr 06/25/24 10:34 Temperature 98.7 F Pulse Rate [Femora l] 66 Respiratory Rate 16 Blood Pressure [Ri ght Upper Arm] 106/67 Pulse Oximetry 96 Oxygen Delivery Me thod Room Air Documenting provider has reviewed patient's vital signs: yes Course Vital Signs Vital signs: Initial Vital Signs Temperature 98.7 F 06/25/24 10:34 Temperature Source Temporal Artery Scan 06/25/24 10:34 Pulse Rate 66 06/25/24 10:34 Respiratory Rate 16 06/25/24 10:34 Blood Pressure 106/67 06/25/24 10:34 Blood Pressure Mean 80 06/25/24 10:34 Pulse Oximetry 96 06/25/24 10:34 Oxygen Delivery Method Room Air 06/25/24 10:34 Vital Signs Temperature 98.7 F 06/25/24 10:34 Pulse Rate 66 06/25/24 10:34 Respiratory Rate 16 06/25/24 10:34 Blood Pressure 106/67 06/25/24 10:34 Pulse Oximetry 96 06/25/24 10:34 Oxygen Delivery Method Room Air 06/25/24 10:34 Temperature 98.7 F 06/25/24 10:34 Pulse Rate 66 06/25/24 10:34 Respiratory Rate 16 06/25/24 10:34 Blood Pressure 106/67 06/25/24 10:34 Pulse Oximetry 96 06/25/24 10:34 Oxygen Delivery Method Room Air 06/25/24 10:34 Medical Decision Making MDM Narrative Medical decision making narrative: Appears to have irritation or some impingement involving her rotator cuff. Maybe some degree of subacromial bursitis. Without prior images think it standard plain films would be a good place to start. Would be looking for some evidence of narrowing or bony restriction/impingement. Possibly avulsion fracture though doubtful. Three view left shoulder independently reviewed by me looks WNL. Unfortunately her job will continue to irritate her shoulder. Would rest when able and would offer an arm sling. Might benefit from outpatient injection if rest isn't working or not possible. Does have follow-up pending. See patient discharge plan for further discussion You sure may have a rotator cuff issue. You seemed to have most difficulty with irritation or stress of your supraspinatus. Please take this disc with copies of your images to follow-up appointment. I would wear this arm sling for comfort over this next week. Can take up to 800 mg ibuprofen up to 1000 mg of acetaminophen per dose. Alternative to the ibuprofen might be up to 500 mg of naproxen 2 times daily. Prescribing prednisone from [facility]. Also some Percocet if needed. Medical Records Medical records reviewed: Yes I reviewed the patient's medical records Discharge Plan Discharge Clinical Impression: Left shoulder pain Patient Disposition: Home, Self-Care Condition: Stable Additional Instructions: You sure may have a rotator cuff issue. You seemed to have most difficulty with irritation or stress of your supraspinatus. Please take this disc with copies of your images to follow-up appointment. I would wear this arm sling for comfort over this next week. Can take up to 800 mg ibuprofen up to 1000 mg of acetaminophen per dose. Alternative to the ibuprofen might be up to 500 mg of naproxen 2 times daily. Prescribing prednisone from [facility]. Also some Percocet if needed. Prescriptions: No Action estradiol 0.01 % (0.1 mg/gram) cream 2 g vaginal 2XW Follow Up/Referrals: Provider,Not a Local [Primary Care Provider] - Stand Alone Forms: [employer] Info Instructions
== END 2024-06-25 11:53 | disposition home or self-care (01) ==
PROVIDERS: Emergency Provider Family Medicine
DX: M25.512 Pain in left shoulder (principal)
CPT/HCPCS: 73030; 99283; 99284